=== PATIENT | male | born 1980 | race Caucasian/White ===

== ENCOUNTER 2019-01-09 21:03 | Inpatient (IN) ==
[2019-01-09] MEDS ORDERED: ASPIRIN CHEW 324 MG PO STA (21:21)
[2019-01-09] MEDS: NITROGLYCERIN SL 0.4 MG/TAB TAB SL PRN ×3 (21:24→21:35)
[2019-01-09 21:32] LABS: Basophils # (auto) 0.01 K/uL (0-0.2); Basophils % (auto) 0.1 %; Eosinophils # (auto) 0.02 K/uL (0-0.5); Eosinophils % (auto) 0.1 %; Hemoglobin 17.4 g/dL (14.0-18.0); Immature Granulocytes # (auto) 0.08 K/uL (0.00-0.02); Immature Granulocytes % (auto) 0.5 %; Lymphocytes # (auto) 1.26 K/uL (1.2-3.4); Lymphocytes % (auto) 7.2 %; Mean Corpuscular Hemoglobin 30.8 pg (25-34); Mean Corpuscular Hgb Conc 35.5 g/dL (32-36); Mean Corpuscular Volume 86.7 fL (80-100); Mean Platelet Volume 10.3 fL (7.4-10.4); Monocytes # (auto) 1.21 K/uL (0.11-0.59); Monocytes % (auto) 6.9 %; Neutrophils # (auto) 15.01 K/uL (1.4-6.5); Neutrophils % (auto) 85.2 %; Platelet Count 294 K/uL (130-400); RDW Coefficient of Variation 12.6 % (11.5-14.5); RDW Standard Deviation 39.9 fL (36.4-46.3); Red Blood Count 5.65 M/uL (4.7-6.1); White Blood Count 17.59 K/uL (4.8-10.8)
[2019-01-09] MEDS ORDERED: NiCARDipine HCL INJ 2.5 MG/ML 10 ML AMP ONE (21:34)
[2019-01-09] MEDS ORDERED: fentaNYL citrate 100 MCG/2 ML VIAL ONE (21:34)
[2019-01-09] MEDS ORDERED: MIDAZOLAM HCL 1 MG/ML 2ML VIAL ONE (21:34)
[2019-01-09] MEDS ORDERED: HEPARIN (PORCINE) 1000 UNIT/ML 10 ML (CATH LAB USE ONLY) ONE (21:34)
--- NOTE | 2019-01-09 21:34 | XRay Report ---
XR chest 1V portable CLINICAL HISTORY: Atypical chest pain COMPARISON STUDY: No previous studies for comparison. FINDINGS: The cardiac and mediastinal contours are normal. There is no evidence of focal pulmonary co nsolidation. There is no evidence of failure. No pleural effusions are visualized.[ IMPRESSION: No active disease in the chest. Electronically signed by: Floyd Napier M.D. 01/09/2019 9:32 PM
[2019-01-09] MEDS ORDERED: NITROGLYCERIN/D5W 100MCG/ML 20ML SYR ONE (21:35)
[2019-01-09 21:41] LABS: Alanine Aminotransferase 72 U/L (12-78); Albumin Level 4.5 gm/dl (3.4-5.0); Aspartate Aminotransferase 35 U/L (15-37); Blood Urea Nitrogen 25 mg/dl (7-18); Calcium 9.3 mg/dl (8.5-10.1); Carbon Dioxide 28 mmol/L (21-32); Chloride 101 mmol/L (98-107); Creatinine Clr Calc Pharmacy 78.3 ml/min; Est GFR (African American) 80.4; Est GFR (Non-African American) 69.4; Glucose 118 mg/dl (70-99); Lipase 301 U/L (73-393); Magnesium 2.1 mg/dl (1.8-2.4); Sodium 136 mmol/L (136-145)
[2019-01-09 21:46] LABS: INR 1.2 (0.9-1.1); Partial Thromboplastin Ratio 0.9; Partial Thromboplastin Time 23.4 Seconds (21.0-31.0); Prothrombin Time 12.1 Seconds (9.0-12.0)
--- NOTE | 2019-01-09 21:48 | Pre Anesthesia Assessment ---
Date of Service January 09, 2019 Pre Sedation Assessment Vital Signs Temp Pulse Resp BP Pulse Ox 01/09/19 21:45 83 13 119/66 94 01/09/19 21:41 76 23 94 01/09/19 21:40 82 25 H 136/75 93 01/09/19 21:36 72 21 96 01/09/19 21:35 92 H 19 126/82 92 01/09/19 21:33 95 01/09/19 21:32 95 01/09/19 21:31 92 H 20 96 01/09/19 21:30 95 H 20 141/96 H 97 01/09/19 21:27 78 28 H 154/107 H 01/09/19 21:25 88 22 01/09/19 21:24 77 26 H 151/105 H 01/09/19 21:20 95 H 14 01/09/19 21:17 82 14 98 01/09/19 21:15 77 17 150/112 H 98 01/09/19 21:06 36.5 C 76 16 164/97 H 98 Pre-Sedation Airway Assessment Smoking Status: Never smoker Notes The planned sedation has been discussed with the patient. Informed Consent was obtained. I have identified the patient, determined the appropriateness of sedation and have assessed the patient immediately prior to the procedure. [place]ampatti 3, ASA 1, normal right hand Allens test All medicine(s) and interventions are by my order.
[2019-01-09] MEDS ORDERED: ONDANSETRON INJ 2 MG/ML 2 ML VIAL ONE (21:54)
[2019-01-09 22:14] LABS: Albumin Globulin Ratio 1.2 (0.9-2); Alkaline Phosphatase 62 U/L (45-117); Bilirubin,Total 0.6 mg/dl (0.2-1); Creatine Kinase 111 U/L (39-308); Creatine Kinase MB 1.7 ng/ml (0.5-3.6); Globulin 3.8 gm/dl (2.5-4.0); Total Protein 8.3 gm/dl (6.4-8.2); Troponin I 0.132 ng/ml (0-0.045)
[2019-01-09] MEDS ORDERED: ONDANSETRON INJ 2 MG/ML 2 ML VIAL IV PRN (22:25)
[2019-01-09] MEDS ORDERED: ATROPINE SULFATE 0.1 MG/ML 10ML SYR IV PRN (22:25)
[2019-01-09] MEDS ORDERED: NITROGLYCERIN SL 0.4 MG/TAB TAB SL PRN (22:25)
[2019-01-09] MEDS ORDERED: CLOPIDOGREL BISULFATE 300 MG TAB ONE (22:29)
[2019-01-09 22:32] LABS: T4 Free Thyroxine 1.13 ng/dl (0.8-1.6)
[2019-01-09] MEDS ORDERED: ICU PROTOCOL FOR HYPERGLYCEMIA PRN (22:35)
[2019-01-09 22:56] LABS: Chol HDL Ratio 4; Cholesterol 182 mg/dl (0-200); HDL Cholesterol 49 mg/dl; LDL Cholesterol Direct 115 mg/dl; Triglycerides 83 mg/dl (0-150); VLDL Cholesterol 17 mg/dl
--- NOTE | 2019-01-09 22:56 | Cardiac Catheterization ---
Cardiac Cath Procedure Full Procedure Date January 09, 2019 Pre-Procedure Diagnosis Pre-Procedure Diagnosis: STEMI AUC Score AUC Score: 8 Post-Procedure Diagnosis Post-Procedure Diagnosis: Mild CAD Procedure(s) Performed Procedure(s) Performed: Coronary Angiography, Left Heart Cath and LV Angiography Magician/Illusionist Tim Betancur DO Estimated Blood Loss Estimated Blood Loss: None Summary of Findings Mid Cx 20% stenosis with staining Hemodynamics Rest Ao:: 112/6 Final Ao: 117/90 LV: EF 60-65% Recommendations Recommendations: Medical Therapy and/or Counseling Radiation Exposure (mGy) no PCI performed I attest to the content of the Intraoperative Record and any orders documented therein. Any exceptions are noted below. Patent coronary arteries without obstruction to flow, 10% mid Cx stenosis with staining, and mid inferior dyskinetic segment, suggests transient thrombotic occlusion C/W inferoposterolateral injury by EKG and Troponin. 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 Villalpando was resident physician during care of patient. I separately evaluated patient for mccarthy portions of the history and the exam. I was present during the critical portion of medical decision making, and I discussed the case with the resident. I generally agree with the findings and plan. Patient asymptomatic, chest pain-free at this time, echocardiogram reviewed and I have reviewed cardiology notes, stable for downgrade out of ICU.
--- NOTE | 2019-01-09 23:07 | History & Physical Report ---
Date of Service January 09, 2019 Assessment & Plan (1) STEMI (ST elevation myocardial infarction): Nonocclusive CAD on diagnostic cardiac cath Recent cholecystitis status post antibiotic Rx Outpatient elective cholecystectomy contemplated next month. Hyperglycemia rule out DM ICU monitoring post PCI Management of cardiac issues as per insulation estimator. Analgesia Check hemoglobin A1c Patient requested to inform his [place] [facility] surgeon of recent AL which might preclude elective surgery scheduled next month. DVT prophylaxis with Lovenox subcu Full code History of Present Illness Chief Complaint: + Primary Care Provider: Dr. Belcher History obtained from patient, family, and records. Medical history significant for recent bout of cholecystitis status post antibiotic Rx. Recent [facility] visit about 2 weeks ago for gallbladder attack. Patient prescribed antibiotic course. Elective cholecystectomy contemplated next month as per patient. Patient was out both hunting by himself this afternoon when he noted achy chest pain in the middle and left side of his chest accompanied by shortness of breath, diaphoresis, generalized weakness. No prior episodes in the past. No relief with ibuprofen intake. Patient drove himself home thinking symptoms with improved after showering. Patient brought to the ER by . EKG showed ST elevation on the inferior lateral leads. Chest pain improved with nitroglycerin. Heart alert called. Patient underwent emergent diagnostic cardiac catheterization. Patent coronary arteries without obstruction to flow, 10% mid circumflex stenosis. Mid inferior dyskinetic segment suggesting transient thrombotic occlusion consistent with inferior posterolateral injury as per cath note. PCI not indicated. Patient currently at the ICU. Complaining of minimal left-sided chest discomfort. 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 Allergies Allergy/AdvReac Type Severity Reaction Status Date / Time Penicillins Allergy Severe Hives Verified 01/09/19 21:32 Home Medications Home Medications Medication Instructions Recorded Confirmed Type ciprofloxacin HCl [Cipro] 500 mg PO BID 01/09/19 01/09/19 History ibuprofen 600 mg PO QID PRN 01/09/19 01/09/19 History metronidazole [Flagyl] 500 mg PO TID 01/09/19 01/09/19 History simvastatin 40 mg PO PM 01/09/19 01/09/19 History Past Med/Surg History Medical History No significant past medical history (Acute) Social History Preferred Language: Honduran Communication Ability: Effective Joist Setter Required: No Beliefs That Will Affect Care: None Current Living Situation: Spouse Other Information That Helps Us Care for You: No Feels Safe at Home: Yes Safety Concerns: Feels Safe At This Time Smoking Status: Never smoker Do You Dip or Chew Tobacco: No ; Hx Alcohol Use: No Hx Substance Use: No Review of Systems Review of Systems: As per HPI, all 10 systems reviewed, all other ROS negative Physical Exam Physical Exam: GENERAL: Comfortable, pleasant, no respiratory distress SKIN: Normal color, warm HEENT: Partial alopecia, pink palpebral conjunctivae, no ptosis, dry buccal mucosa NECK : Supple, no tenderness CHEST : CTA, no tenderness HEART : RRR, no obvious murmurs ABDOMEN: Some distention, nontender EXTREMITIES : No LE swelling/tenderness, no other conspicuous deformities noted NEUROLOGIC : Coherent, no facial asymmetry, no other gross focality Results & Data Vital Signs (Past 12 Hours) Vital Signs Temp Pulse Resp BP Pulse Ox 01/09/19 21:45 83 13 119/66 94 01/09/19 21:41 76 23 94 01/09/19 21:40 82 25 H 136/75 93 01/09/19 21:36 72 21 96 01/09/19 21:35 92 H 19 126/82 92 01/09/19 21:33 95 01/09/19 21:32 95 01/09/19 21:31 92 H 20 96 01/09/19 21:30 95 H 20 141/96 H 97 01/09/19 21:27 78 28 H 154/107 H 01/09/19 21:25 88 22 01/09/19 21:24 77 26 H 151/105 H 01/09/19 21:20 95 H 14 01/09/19 21:17 82 14 98 01/09/19 21:15 77 17 150/112 H 98 01/09/19 21:06 36.5 C 76 16 164/97 H 98 Laboratory Results Laboratory Results WBC 17.59 K/uL (4.8-10.8) H 01/09/19 21:17 RBC 5.65 M/uL (4.7-6.1) 01/09/19 21:17 Hgb 17.4 g/dL (14.0-18.0) 01/09/19 21:17 Hct 49.0 % (42-52) 01/09/19 21:17 MCV 86.7 fL (80-100) 01/09/19 21:17 MCH 30.8 pg (25-34) 01/09/19 21:17 MCHC 35.5 g/dL (32-36) 01/09/19 21:17 RDW Std Deviation 39.9 fL (36.4-46.3) 01/09/19 21:17 RDW Coeff of Matthieu 12.6 % (11.5-14.5) 01/09/19 21:17 Plt Count 294 K/uL (130-400) 01/09/19 21:17 MPV 10.3 fL (7.4-10.4) 01/09/19 21:17 Immature Gran % (Auto) 0.5 % 01/09/19 21:17 Neut % (Auto) 85.2 % 01/09/19 21:17 Lymph % (Auto) 7.2 % 01/09/19 21:17 Heard % (Auto) 6.9 % 01/09/19 21:17 Eos % (Auto) 0.1 % 01/09/19 21:17 Baso % (Auto) 0.1 % 01/09/19 21:17 Immature Gran # (Auto) 0.08 K/uL (0.00-0.02) H 01/09/19 21:17 Neut # (Auto) 15.01 K/uL (1.4-6.5) H 01/09/19 21:17 Lymph # (Auto) 1.26 K/uL (1.2-3.4) 01/09/19 21:17 Heard # (Auto) 1.21 K/uL (0.11-0.59) H 01/09/19 21:17 Eos # (Auto) 0.02 K/uL (0-0.5) 01/09/19 21:17 Baso # (Auto) 0.01 K/uL (0-0.2) 01/09/19 21:17 PT 12.1 Seconds (9.0-12.0) H 01/09/19 21:17 INR 1.2 (0.9-1.1) H 01/09/19 21:17 APTT 23.4 Seconds (21.0-31.0) 01/09/19 21:17 PTT Ratio 0.9 01/09/19 21:17 Sodium 136 mmol/L (136-145) 01/09/19 21:17 Potassium 4.0 mmol/L (3.5-5.1) 01/09/19 21:17 Chloride 101 mmol/L (98-107) 01/09/19 21:17 Carbon Dioxide 28 mmol/L (21-32) 01/09/19 21:17 Anion Gap 7.0 (3-11) 01/09/19 21:17 BUN 25 mg/dl (7-18) H 01/09/19 21:17 Creatinine 1.29 mg/dl (0.6-1.4) 01/09/19 21:17 Est Cr Clr Drug Dosing 78.3 ml/min 01/09/19 21:17 Est GFR ( Amer) 80.4 01/09/19 21:17 Est GFR (Non-Af Amer) 69.4 01/09/19 21:17 BUN/Creatinine Ratio 19.0 (10-20) 01/09/19 21:17 Glucose 118 mg/dl (70-99) H 01/09/19 21:17 Calcium 9.3 mg/dl (8.5-10.1) 01/09/19 21:17 Magnesium 2.1 mg/dl (1.8-2.4) 01/09/19 21:17 Total Bilirubin 0.6 mg/dl (0.2-1) 01/09/19 21:17 AST 35 U/L (15-37) 01/09/19 21:17 ALT 72 U/L (12-78) 01/09/19 21:17 Alkaline Phosphatase 62 U/L (45-117) 01/09/19 21:17 Total Creatine Kinase 111 U/L (39-308) 01/09/19 21:17 CK-MB (CK-2) 1.7 ng/ml (0.5-3.6) 01/09/19 21:17 CK/CKMB % Calc 1.5 (0-3.0) 01/09/19 21:17 POC Troponin I 0.12 ng/ml (0-0.045) H 01/09/19 21:21 Troponin I 0.132 ng/ml (0-0.045) H* 01/09/19 21:17 Total Protein 8.3 gm/dl (6.4-8.2) H 01/09/19 21:17 Albumin 4.5 gm/dl (3.4-5.0) 01/09/19 21:17 Globulin 3.8 gm/dl (2.5-4.0) 01/09/19 21:17 Albumin/Globulin Ratio 1.2 (0.9-2) 01/09/19 21:17 Triglycerides 83 mg/dl (0-150) 01/09/19 21:17 Cholesterol 182 mg/dl (0-200) 01/09/19 21:17 LDL Cholesterol Direct 115 mg/dl 01/09/19 21:17 LDL Cholesterol, Calc Not Reportable 01/09/19 21:17 VLDL Cholesterol, Calc 17 mg/dl 01/09/19 21:17 HDL Cholesterol 49 mg/dl 01/09/19 21:17 Cholesterol/HDL Ratio 4 01/09/19 21:17 Lipase 301 U/L (73-393) 01/09/19 21:17 TSH 7.240 uIu/ml (0.300-4.500) H 01/09/19 21:17 Free T4 1.13 ng/dl (0.8-1.6) 01/09/19 21:17 Diagnostic Findings Chest x-ray : No active disease EKG as per my interpretation : Rate 70, NSR, normal axis, ST and ablation inferior, lateral leads
[2019-01-09] MEDS ORDERED: TRAMADOL HCL 50 MG TABLET PO PRN (23:15)
[2019-01-09] MEDS ORDERED: ACETAMINOPHEN 325 MG TAB PO PRN (23:17)
--- NOTE | 2019-01-09 23:27 | Critical Care Consultation ---
Date of Consultation January 09, 2019 Assessment & Plan (1) STEMI (ST elevation myocardial infarction): (2) Cholecystitis: Reason Critically Ill: 38-year-old male found to have ST elevation in inferior lateral leads, heart cath suggestive of transient thrombotic occlusion without need for PCI. Neuro - [facility] ICU: Negative Cardiac - STEMIpatient presented with ST elevation in inferior lateral leads on EKG and elevated troponin 0.132 -Underwent cardiac cath with no indication for PCI placement, suggestive of transient thrombotic occlusion -ST elevation is subsided on post-cath EKG and chest pain is improved -Continue Lipitor, MTP, ASA, Plavix -Trend troponins -Follow-up echo -Continuous monitoring on telemetry -Monitor daily weights -Follow-up cardiac recs HLDcontinue statin Respiratory - Maintain sats on room air GI - Heart healthy diet Cholecystitisno current issue, patient scheduled for elective cholecystectomy on 02/05 -Patient reportedly had 1 day of antibiotic therapy you left, will continue, see below RENAL/LYTES - NS 100 mL/h Creatinine stable, maximize electrolytes, monitor routine BMPs - Strict I's and O's ENDO - No history of diabetes or thyroid disease Follow-up hemoglobin A1c ICU hyperglycemic protocol HEME - H&H within normal limits, monitor routine CBC ID - Patient currently on antibiotics for cholecystitis, will continue outpatient regimen as patient had 1 day left Will continue regimen of Flagyl 500 mg 3 times daily for next 48 hours for cholecystitis We will continue regimen of Cipro 500 mg twice daily for the next 48 hours for cholecystitis LINES/IV ACCESS - Peripheral IV DVT PROPHYLAXIS - Lovenox Thank you for allowing us to participate in the care of this patient. Please refer to my attending physician's documentation for any further recommendations. (3) Hyperlipemia: Supervising Physician Co-Signing Physician Notes Dr. Villalpando was resident physician during care of patient. I separately evaluated patient for mccarthy portions of the history and the exam. I was present during the critical portion of medical decision making, and I discussed the case with the resident. I generally agree with the findings and plan. Patient asymptomatic, chest pain-free at this time, echocardiogram reviewed and I have reviewed cardiology notes, stable for downgrade out of ICU. History of Present Illness Attending Physician: Gus Quezada MD History of Present Illness Mr. Murillo is a 38 [id number] with past medical history of HLD and recent cholecystitis (scheduled for cholecystectomy 02/05) who was bowhunting this afternoon when he began to experience chest pain with associated shortness of breath and diaphoresis. He drove home and was brought to the emergency department by his where EKG showed ST elevations in the inferior lateral leads and he had a mildly elevated troponin. Patient was given nitro and showed some improvement in chest pain. Heart alert was initiated and was taken to [facility]. Heart cath revealed no obstructive flow to the coronary arteries, 10% mid circumflex stenosis. Patient had mid inferior dyskinetic segment which suggested transient thrombotic occlusion consistent with inferior posterior lateral injury. No PCI was indicated. On arrival to the ICU the patient does complain of a mild apical chest discomfort 2 out of 10. He denies dizziness, syncope, shortness of breath, palpitations, radiation of chest pain to arm or neck, nausea or vomiting. He does complain of mild tenderness to the right upper quadrant which he claims is related to recent bout of cholecystitis which she is scheduled for cholecystectomy at the beginning of next month. Patient is currently hem odynamically stable remain in ICU overnight for close monitoring. Allergies Allergy/AdvReac Type Severity Reaction Status Date / Time Penicillins Allergy Severe Hives Verified 01/09/19 21:32 Home Medications Home Medications Medication Instructions Recorded Confirmed Type ciprofloxacin HCl [Cipro] 500 mg PO BID 01/09/19 01/09/19 History ibuprofen 600 mg PO QID PRN 01/09/19 01/09/19 History metronidazole [Flagyl] 500 mg PO TID 01/09/19 01/09/19 History simvastatin 40 mg PO PM 01/09/19 01/09/19 History Patient History Medical History No significant past medical history (Acute) Social History Preferred Language: Greek Communication Ability: Effective Air Carrier Inspector Required: No Beliefs That Will Affect Care: None Current Living Situation: Spouse Other Information That Helps Us Care for You: No Feels Safe at Home: Yes Safety Concerns: Feels Safe At This Time Smoking Status: Never smoker Do You Dip or Chew Tobacco: No ; Hx Alcohol Use: No Hx Substance Use: No Review of Systems Review of Systems: All systems reviewed & are unremarkable except as noted in HPI & below Physical Exam Eyes: PERRL, conjunctivae normal, anicteric sclerae ENMT: external ear and nose normal, oropharynx normal Neck: trachea midline, no thyromegaly Respiratory: normal respiratory effort, lungs clear to auscultation Cardiovascular: RRR, no murmur, no edema Heart Sounds: normal S1 and normal S2 Vessels: no JVD Extremities: normal capillary refill; no edema Gastrointestinal (Abdomen): Inspection/Auscultation: normal bowel sounds; abdomen not distended Percussion/Palpation: abdomen soft Tenderness over right upper quadrant Skin: no rashes, warm and dry Neurologic: PERRL, EOMI, accommodation nl, no face palsy, no dysarthria Psychiatric: A+Ox3, euthymic affect Results & Data Vital Signs (Past 12 Hours) Vital Signs Temp Pulse Resp BP Pulse Ox 01/09/19 23:15 72 20 120/75 95 01/09/19 23:00 36.7 C 62 20 112/68 94 01/09/19 21:45 83 13 119/66 94 01/09/19 21:41 76 23 94 01/09/19 21:40 82 25 H 136/75 93 01/09/19 21:36 72 21 96 01/09/19 21:35 92 H 19 126/82 92 01/09/19 21:33 95 01/09/19 21:32 95 01/09/19 21:31 92 H 20 96 01/09/19 21:30 95 H 20 141/96 H 97 01/09/19 21:27 78 28 H 154/107 H 01/09/19 21:25 88 22 01/09/19 21:24 77 26 H 151/105 H 01/09/19 21:20 95 H 14 01/09/19 21:17 82 14 98 01/09/19 21:15 77 17 150/112 H 98 01/09/19 21:06 36.5 C 76 16 164/97 H 98 Coding Level of Care Code 82048 Inpt Consult Level 4 Diagnoses STEMI (ST elevation myocardial infarction) I21.3 Cholecystitis K81.9 Hyperlipemia E78.5
[2019-01-09] MEDS: SODIUM CHLORIDE 0.9% 1000ML 1,000 ML IV SCH (23:30)
[2019-01-09] MEDS ORDERED: TRAMADOL HCL 50 MG TABLET PO STA (23:57)
[2019-01-09] MEDS ORDERED: MoRPHine SULFATE 4 MG/ML 1 ML CARP\\VIAL IV PRN (23:58)
[2019-01-09] MEDS ORDERED: PROMETHAZINE HCL 12.5 MG in SODIUM CHLORIDE 0.9% 50 ML IV PRN (23:58)
[2019-01-10] MEDS: METOPROLOL TARTRATE 25 MG TAB PO SCH ×3 (00:06→20:10)
[2019-01-10] MEDS: metroNIDAZOLE 500 MG/100 ML BAG IV SCH ×3 (02:00→17:15)
[2019-01-10] MEDS ORDERED: CIPROFLOXACIN 500 MG TAB PO SCH (02:00)
--- NOTE | 2019-01-10 02:01 | Emergency Department Note ---
Entered by Rachael Elias acting as a scribe for Vanessa Pettit DO History of Present Illness General Chief complaint: Chest Pain Stated complaint: CHEST PAIN Time Seen by Provider: 01/09/19 21:10 Source: patient History of Present Illness Provider complaint: chest pain Onset (ago): hour(s) 2 Location: chest Radiation: non-radiation Maximum Pain Intensity: 7 Current Pain Intensity: 6 Quality: + stabbing, + sharp and + dull Associated symptoms: + nausea/vomiting (+nausea, -vomiting), + shortness of breath and + other (+jaw pain) Treatments prior to arrival: other (+Ibuprofen) The patient is a 38 year old male who presents to the Emergency Room with complaints of chest pain that started at 1845 today. He notes that it started while he was walking. He notes that he had been carrying heavy materials prior to the episode and he was exhausted. He states that the pain feels like dull, sharp, stabbing pain. The patient notes that the pain is located in the center of the chest and is non-radiating. He reports that it is a 6/10 pain. He notes that he has jaw pain. He mentions that he is nauseous and has mild shortness of breath. He reports that he took 3 doses of Ibuprofen prior to arrival. He denies any past medical problems. The patient mentions that his father had cardiac issues at 45 years old. Home Medications Home Medications Medication Instructions Recorded Confirmed Type ciprofloxacin HCl [Cipro] 500 mg PO BID 01/09/19 01/09/19 History ibuprofen 600 mg PO QID PRN 01/09/19 01/09/19 History metronidazole [Flagyl] 500 mg PO TID 01/09/19 01/09/19 History simvastatin 40 mg PO PM 01/09/19 01/09/19 History Allergies Allergy/AdvReac Type Severity Reaction Status Date / Time Penicillins Allergy Severe Hives Verified 01/09/19 21:32 Past Med/Surg History Medical History No significant past medical history (Acute) Social History Preferred Language: [place] Communication Ability: Effective V Belt Skiver Required: No Beliefs That Will Affect Care: None marital status: Current Living Situation: Spouse Other Information That Helps Us Care for You: No Feels Safe at Home: Yes Safety Concerns: Feels Safe At This Time Smoking Status: Never smoker Do You Dip or Chew Tobacco: No ; Hx Alcohol Use: No Hx Substance Use: No Review of Systems See HPI for pertinent positives & negatives. and A total of 10 systems reviewed and were otherwise negative Physical Exam Vital Signs Vital Signs - 24 hr 01/09/19 21:06 01/09/19 21:15 01/09/19 21:17 Temperature 36.5 C Temperature Source Oral Sepsis Recent Fever Within 48 Hours No Sepsis Action Taken by Nursing No Action Required Pulse Rate 76 77 82 Pulse Rate from SpO2 Sensor 76 83 Respiratory Rate 16 17 14 Respiratory Effort / Characteristics Non-Labored Spontaneous Respiratory Depth Normal Respiratory Pattern Regular Blood Pressure 164/97 H 150/112 H Blood Pressure Mean 119 124 Blood Pressure Position Sitting Pulse Oximetry 98 98 98 Oxygen Delivery Method Room Air 01/09/19 21:20 01/09/19 21:24 01/09/19 21:25 Temperature Temperature Source Sepsis Recent Fever Within 48 Hours Sepsis Action Taken by Nursing Pulse Rate 95 H 77 88 Pulse Rate from SpO2 Sensor Respiratory Rate 14 26 H 22 Respiratory Effort / Characteristics Respiratory Depth Respiratory Pattern Blood Pressure 151/105 H Blood Pressure Mean 120 Blood Pressure Position Pulse Oximetry Oxygen Delivery Method 01/09/19 21:27 01/09/19 21:30 01/09/19 21:31 Temperature Temperature Source Sepsis Recent Fever Within 48 Hours Sepsis Action Taken by Nursing Pulse Rate 78 95 H 92 H Pulse Rate from SpO2 Sensor 84 90 Respiratory Rate 28 H 20 20 Respiratory Effort / Characteristics Respiratory Depth Respiratory Pattern Blood Pressure 154/107 H 141/96 H Blood Pressure Mean 122 111 Blood Pressure Position Pulse Oximetry 97 96 Oxygen Delivery Method 01/09/19 21:32 01/09/19 21:33 01/09/19 21:35 Temperature Temperature Source Sepsis Recent Fever Within 48 Hours Sepsis Action Taken by Nursing Pulse Rate 92 H Pulse Rate from SpO2 Sensor 77 Respiratory Rate 19 Respiratory Effort / Characteristics Respiratory Depth Respiratory Pattern Blood Pressure 126/82 Blood Pressure Mean 96 Blood Pressure Position Pulse Oximetry 95 95 92 Oxygen Delivery Method Room Air Room Air 01/09/19 21:36 01/09/19 21:40 01/09/19 21:41 Temperature Temperature Source Sepsis Recent Fever Within 48 Hours Sepsis Action Taken by Nursing Pulse Rate 72 82 76 Pulse Rate from SpO2 Sensor 71 92 H 80 Respiratory Rate 21 25 H 23 Respiratory Effort / Characteristics Respiratory Depth Respiratory Pattern Blood Pressure 136/75 Blood Pressure Mean 95 Blood Pressure Position Pulse Oximetry 96 93 94 Oxygen Delivery Method 01/09/19 21:45 01/09/19 23:00 Temperature 36.7 C Temperature Source Sepsis Recent Fever Within 48 Hours Sepsis Action Taken by Nursing Pulse Rate 83 62 Pulse Rate from SpO2 Sensor 82 61 Respiratory Rate 13 20 Respiratory Effort / Characteristics Respiratory Depth Respiratory Pattern Blood Pressure 119/66 112/68 Blood Pressure Mean 83 82 Blood Pressure Position Pulse Oximetry 94 94 Oxygen Delivery Method General: Non-ill appearing young male in no acute distress. HEENT: Normal cephalic atraumatic. Pupils are equal round and reactive to light. Extraocular movements are intact. Oropharynx is pink with moist mucous membranes. No swelling of the mouth lips or tongue. Neck: Supple with a midline trachea. No meningeal signs or stiffness, no JVD or bruits. No Stridor. Chest: Clear to auscultation bilaterally. No wheezes or rhonchi. No increased work of breathing. Heart: regular rate and rhythm. Abdomen: Soft nontender, nondistended without rebound guarding or rigidity. Extremities: No cyanosis clubbing or edema. No calf tenderness or asymmetry Spine/Back. Non tender to palpation. No CVA tenderness Skin: Good turgor without rashes. Neurologic exam: Cranial nerves two through 12 are intact. Motor and sensation are intact and symmetrical throughout. Course 2113: The patient was evaluated in room A9B, and a complete history and physical examination were performed. 2144: The patient will be further evaluated by Dr. Vargas- [facility] Cardiology in the research lab assistant. Administered Medications Aspirin (Ecotrin Ectab) 81 mg PO QAM [facility] Stop: 02/09/19 08:59 Last Admin: 01/10/19 07:45 Dose: 81 mg Documented by: [id number] Clopidogrel Bisulfate (Plavix) 75 mg PO QAM [facility] Stop: 02/09/19 08:59 Last Admin: 01/10/19 07:46 Dose: 75 mg Documented by: [id number] Colchicine (Colcrys) 0.3 mg PO BID [facility] Stop: 01/11/19 21:01 Last Admin: 01/10/19 09:26 Dose: 0.3 mg Documented by: [id number] Enoxaparin Sodium (Lovenox) 40 mg SQ QAM [facility] Stop: 02/09/19 08:59 Last Admin: 01/10/19 07:46 Dose: 40 mg Documented by: [id number] Famotidine (Pepcid) 20 mg PO QAM [facility] Stop: 02/09/19 08:59 Last Admin: 01/10/19 09:26 Dose: 20 mg Documented by: [id number] Metronidazole (Flagyl) 500 mg in 100 mls @ 100 mls/hr IV Q8H [facility] Stop: 01/12/19 01:59 Last Admin: 01/10/19 17:15 Dose: 100 mls/hr Documented by: [id number] Infusion: 01/10/19 10:35 Dose: 0 mls/hr Documented by: [id number] Admin: 01/10/19 09:26 Dose: 100 mls/hr Documented by: [id number] Infusion: 01/10/19 02:57 Dose: 0 mls/hr Documented by: [id number] Admin: 01/10/19 02:00 Dose: 100 mls/hr Documented by: [id number] Metoprolol Tartrate (Lopressor) 25 mg PO BID [facility] Stop: 02/08/19 22:29 Last Admin: 01/10/19 07:47 Dose: 25 mg Documented by: [id number] Admin: 01/10/19 00:06 Dose: 25 mg Documented by: [id number] Discontinued Medications Aspirin (Aspirin) 324 mg PO NOW [facility] Stop: 01/09/19 21:22 Last Admin: 01/09/19 21:24 Dose: 324 mg Documented by: [id number] Atorvastatin Calcium [facility]) [facility] Stop: 02/09/19 08:59 Last Admin: 01/10/19 07:46 Dose: 40 mg Documented by: [id number] Ciprofloxacin (Cipro) 500 mg PO Q12 [facility] Stop: 01/12/19 01:59 Last Admin: 01/10/19 01:55 Dose: 500 mg Documented by: [id number] Clopidogrel Bisulfate (Plavix) Confirm Administered Dose 600 mg .ROUTE .STK-MED ONE Stop: 01/09/19 22:30 Last Admin: 01/09/19 23:37 Dose: Not Given Documented by: [id number] Fentanyl Citrate (Fentanyl Citrate) Confirm Administered Dose 100 mcg .ROUTE .STK-MED ONE Stop: 01/09/19 21:35 Last Admin: 01/09/19 22:23 Dose: 25 mcg Documented by: [id number] Heparin Sodium (Porcine) (Heparin Iv Bolus (Guest Room Attendant Use Only)) Confirm Administered Dose 10,000 units .ROUTE .STK-MED ONE Stop: 01/09/19 21:35 Last Admin: 01/09/19 22:24 Dose: 5,000 units Documented by: [id number] Heparin Sodium/Sodium Chloride (Heparin/Nss 1000 Unit/500ml Flush Bag) Confirm Administered Dose 3,000 units IV .STK-MED ONE Stop: 01/09/19 21:35 Last Admin: 01/09/19 22:24 Dose: 3,000 units Documented by: [id number] Sodium Chloride (Nss 1000ml) 1,000 mls @ 100 mls/hr IV .Q10H [facility] Stop: 02/08/19 21:59 Last Infusion: 01/10/19 16:41 Dose: 0 mls/hr Documented by: [id number] Admin: 01/10/19 05:00 Dose: 100 mls/hr Documented by: [id number] Infusion: 01/10/19 05:00 Dose: 100 mls/hr Documented by: [id number] Admin: 01/09/19 23:30 Dose: 100 mls/hr Documented by: [id number] Ibuprofen (Motrin) 800 mg PO TID [facility] Stop: 02/09/19 08:59 Last Admin: 01/10/19 09:25 Dose: 800 mg Documented by: [id number] Midazolam HCl (Versed) Confirm Administered Dose 2 mg .ROUTE .STK-MED ONE Stop: 01/09/19 21:35 Last Admin: 01/09/19 22:24 Dose: 1 mg Documented by: [id number] Nicardipine HCl (Cardene) Confirm Administered Dose 25 mg .ROUTE .STK-MED ONE Stop: 01/09/19 21:35 Last Admin: 01/09/19 22:23 Dose: 25 mg Documented by: [id number] Nitroglycerin (Nitrostat) 0.4 mg SL Q5M PRN PRN Reason: Chest Pain Last Admin: 01/09/19 21:35 Dose: 0.4 mg Documented by: [id number] Admin: 01/09/19 21:31 Dose: 0.4 mg Documented by: [id number] Admin: 01/09/19 21:24 Dose: 0.4 mg Documented by: [id number] Nitroglycerin/Dextrose (Nitroglycerin/D5w 100 Mcg/Ml 20ml Syringe) Confirm Administered Dose 2,000 mcg .ROUTE .STK-MED ONE Stop: 01/09/19 21:36 Last Admin: 01/09/19 22:24 Dose: 2,000 mcg Documented by: [id number] Ondansetron HCl (Zofran) Confirm Administered Dose 4 mg .ROUTE .STK-MED ONE Stop: 01/09/19 21:55 Last Admin: 01/09/19 22:24 Dose: 4 mg Documented by: [id number] Potassium Chloride (Klor-Con M20) 40 meq PO NOW [facility] Stop: 01/10/19 05:52 Last Admin: 01/10/19 06:19 Dose: 40 meq Documented by: [id number] Tramadol HCl (Ultram) 25 mg PO NOW [facility] Stop: 01/09/19 23:58 Last Admin: 01/10/19 00:07 Dose: Not Given Documented by: [id number] Medical Decision Making Differential Diagnosis Differential diagnoses include but are not limited to acute NM, pericarditis, GERD, aortic dissection, CHF, electrolyte abnormality, metabolic abnormality. Medical Records Attestation: I reviewed the patient's medical records. Home Medications Current Medication List: was personally reviewed by me Laboratory Data Attestation: I reviewed the patient's lab results. Result diagrams: 01/10/19 04:28 01/10/19 04:28 Lab Results 01/09/19 01/09/19 01/09/19 Range/Units 21:17 21:17 21:17 WBC 17.59 H (4.8-10.8) K/uL RBC 5.65 (4.7-6.1) M/uL Hgb 17.4 (14.0-18.0) g/dL Hct 49.0 (42-52) % MCV 86.7 (80-100) fL MCH 30.8 (25-34) pg MCHC 35.5 (32-36) g/dL RDW Std Deviation 39.9 (36.4-46.3) fL RDW Coeff of Matthieu 12.6 (11.5-14.5) % Plt Count 294 (130-400) K/uL MPV 10.3 (7.4-10.4) fL Immature Gran % (Auto) 0.5 % Neut % (Auto) 85.2 % Lymph % (Auto) 7.2 % [place] % (Auto) 6.9 % Eos % (Auto) 0.1 % Baso % (Auto) 0.1 % Immature Gran # (Auto) 0.08 H (0.00-0.02) K/uL Neut # (Auto) 15.01 H (1.4-6.5) K/uL Lymph # (Auto) 1.26 (1.2-3.4) K/uL [place] # (Auto) 1.21 H (0.11-0.59) K/uL Eos # (Auto) 0.02 (0-0.5) K/uL Baso # (Auto) 0.01 (0-0.2) K/uL PT 12.1 H (9.0-12.0) Seconds INR 1.2 H (0.9-1.1) APTT 23.4 (21.0-31.0) Seconds PTT Ratio 0.9 Sodium 136 (136-145) mmol/L Potassium 4.0 (3.5-5.1) mmol/L Chloride 101 (98-107) mmol/L Carbon Dioxide 28 (21-32) mmol/L Anion Gap 7.0 (3-11) BUN 25 H (7-18) mg/dl Creatinine 1.29 (0.6-1.4) mg/dl Est Cr Clr Drug Dosing 78.3 ml/min Est GFR ( Amer) 80.4 Est GFR (Non-Af Amer) 69.4 BUN/Creatinine Ratio 19.0 (10-20) Glucose 118 H (70-99) mg/dl Calcium 9.3 (8.5-10.1) mg/dl Magnesium 2.1 (1.8-2.4) mg/dl Total Bilirubin 0.6 (0.2-1) mg/dl AST 35 (15-37) U/L ALT 72 (12-78) U/L Alkaline Phosphatase 62 (45-117) U/L Total Creatine Kinase 111 (39-308) U/L CK-MB (CK-2) 1.7 (0.5-3.6) ng/ml CK/CKMB % Calc 1.5 (0-3.0) POC Troponin I (0-0.045) ng/ml Troponin I 0.132 H* (0-0.045) ng/ml Total Protein 8.3 H (6.4-8.2) gm/dl Albumin 4.5 (3.4-5.0) gm/dl Globulin 3.8 (2.5-4.0) gm/dl Albumin/Globulin Ratio 1.2 (0.9-2) Triglycerides 83 (0-150) mg/dl Cholesterol 182 (0-200) mg/dl LDL Cholesterol Direct 115 mg/dl LDL Cholesterol, Calc Not Reportable VLDL Cholesterol, Calc 17 mg/dl HDL Cholesterol 49 mg/dl Cholesterol/HDL Ratio 4 Lipase 301 (73-393) U/L TSH 7.240 H (0.300-4.500) uIu/ml Free T4 1.13 (0.8-1.6) ng/dl 01/09/19 Range/Units 21:21 WBC (4.8-10.8) K/uL RBC (4.7-6.1) M/uL Hgb (14.0-18.0) g/dL Hct (42-52) % MCV (80-100) fL MCH (25-34) pg MCHC (32-36) g/dL RDW Std Deviation (36.4-46.3) fL RDW Coeff of Matthieu (11.5-14.5) % Plt Count (130-400) K/uL MPV (7.4-10.4) fL Immature Gran % (Auto) % Neut % (Auto) % Lymph % (Auto) % [place] % (Auto) % Eos % (Auto) % Baso % (Auto) % Immature Gran # (Auto) (0.00-0.02) K/uL Neut # (Auto) (1.4-6.5) K/uL Lymph # (Auto) (1.2-3.4) K/uL [place] # (Auto) (0.11-0.59) K/uL Eos # (Auto) (0-0.5) K/uL Baso # (Auto) (0-0.2) K/uL PT (9.0-12.0) Seconds INR (0.9-1.1) APTT (21.0-31.0) Seconds PTT Ratio Sodium (136-145) mmol/L Potassium (3.5-5.1) mmol/L Chloride (98-107) mmol/L Carbon Dioxide (21-32) mmol/L Anion Gap (3-11) BUN (7-18) mg/dl Creatinine (0.6-1.4) mg/dl Est Cr Clr Drug Dosing ml/min Est GFR ( Amer) Est GFR (Non-Af Amer) BUN/Creatinine Ratio (10-20) Glucose (70-99) mg/dl Calcium (8.5-10.1) mg/dl Magnesium (1.8-2.4) mg/dl Total Bilirubin (0.2-1) mg/dl AST (15-37) U/L ALT (12-78) U/L Alkaline Phosphatase (45-117) U/L Total Creatine Kinase (39-308) U/L CK-MB (CK-2) (0.5-3.6) ng/ml CK/CKMB % Calc (0-3.0) POC Troponin I 0.12 H (0-0.045) ng/ml Troponin I (0-0.045) ng/ml Total Protein (6.4-8.2) gm/dl Albumin (3.4-5.0) gm/dl Globulin (2.5-4.0) gm/dl Albumin/Globulin Ratio (0.9-2) Triglycerides (0-150) mg/dl Cholesterol (0-200) mg/dl LDL Cholesterol Direct mg/dl LDL Cholesterol, Calc VLDL Cholesterol, Calc mg/dl HDL Cholesterol mg/dl Cholesterol/HDL Ratio Lipase (73-393) U/L TSH (0.300-4.500) uIu/ml Free T4 (0.8-1.6) ng/dl Imaging Data Radiologist's Impression: Radiology results as stated below per my review and the radiologist's interpretation: XR chest 1V portable CLINICAL HISTORY: Atypical chest pain COMPARISON STUDY: No previous studies for comparison. FINDINGS: The cardiac and mediastinal contours are normal. There is no evidence of focal pulmonary consolidation. There is no evidence of failure. No pleural effusions are visualized.[ IMPRESSION: No active disease in the chest. Electronically signed by: Floyd Napier M.D. 01/09/2019 9:32 PM ECG Data Attestation: I personally reviewed and interpreted this ECG as follows: Indication: + chest pain Rate (beats per minute): 71 Rhythm: + normal sinus ECG ST segments: + ST depression (v1, v2, avL) ECG Findings: + Other (acute STEMI inferior and laterally consistent with acute NM) Additional Comments: EKG 2: Normal sinus rhythm, 87 bpm, ST segment has slightly decreased compared to EKG1, otherwise there is no change. Blood Pressure Blood Pressure Findings: Low blood pressure Blood Pressure Disposition: further management by hospitalist MDM Narrative This patient was originally signed up for by Dr. pettit. I actually saw the patient and she did not as the nurse came and got me with the EKG is a concern for acute NM and I immediately went into the room. The patient was having symptoms consistent with acute NM. EKG showed ST segment elevation with some posterior changes and reciprocal changes. I called the heart alert. We established 2 large-bore IVs. The patient was given aspirin. He was given 3 nitroglycerin and this caused the pain to go down significantly a second EKG actually looks slightly better than the first and certainly does not look worse. Chest x-ray does not show any congestive heart failure, pneumonia, or pneumothorax. He has no acute electrode or metabolic abnormalities. His troponin is mildly elevated. The cardiac cath team and certified social workers in health care did arrive promptly and are going to take him to the Guest Room Attendant for further treatment evaluation and intervention. I explained this to both the patient is who is at the bedside as well as the patient's sister they are all in agreement with the plan. Impression & Plan Acute myocardial infarction, STEMI (ST elevation myocardial infarction), Chest pain, Hyperlipemia Critical Care Time Critical Care Time: Yes Total Critical Care Time: 30 I have personally spent greater than 30 minutes of critical care time in the direct management of this patient. This includes bedside care, interpretation of diagnostic studies, and testing, discussion with consultants, patient, and family members, and other required patient management activities. This 30 minutes is in excess of all separately billable procedures. Discharge Plan Visit Data *Final* Discharge Date/Time: 01/09/19 21:47 Chief Complaint: Chest Pain Stated Complaint: CHEST PAIN ED Provider: Nelson Palmer Discharge Problem: Acute myocardial infarction, STEMI (ST elevation myocardial infarction), Chest pain, Hyperlipemia Patient Disposition: Admitted As Inpatient Discharge Instructions Interventions: ED Discharge Assessment Last Done: 01/09/19 21:47 Discharge Problem: Acute myocardial infarction Qualifiers: Myocardial infarction type: ST elevation myocardial infarction Involved coronary artery: unspecified coronary artery Qualified Code(s): I21.3 - ST marisela vation (STEMI) myocardial infarction of unspecified site The scribe's documentation has been prepared under my direction and personally reviewed by me in its entirety. I confirm that the note above accurately reflects all work, treatment, procedures, and medical decision making performed by me.
[2019-01-10 04:52] LABS: Basophils # (auto) 0.01 K/uL (0-0.2); Basophils % (auto) 0.1 %; Eosinophils # (auto) 0.06 K/uL (0-0.5); Eosinophils % (auto) 0.5 %; Hematocrit (blood only) 43.1 % (42-52); Hemoglobin 15.4 g/dL (14.0-18.0); Immature Granulocytes # (auto) 0.04 K/uL (0.00-0.02); Immature Granulocytes % (auto) 0.3 %; Lymphocytes # (auto) 2.35 K/uL (1.2-3.4); Lymphocytes % (auto) 19.6 %; Mean Corpuscular Hgb Conc 35.7 g/dL (32-36); Mean Corpuscular Volume 86.7 fL (80-100); Mean Platelet Volume 9.8 fL (7.4-10.4); Monocytes # (auto) 1.21 K/uL (0.11-0.59); Monocytes % (auto) 10.1 %; Neutrophils # (auto) 8.29 K/uL (1.4-6.5); Neutrophils % (auto) 69.4 %; Platelet Count 270 K/uL (130-400); RDW Coefficient of Variation 12.6 % (11.5-14.5); RDW Standard Deviation 39.8 fL (36.4-46.3); Red Blood Count 4.97 M/uL (4.7-6.1); White Blood Count 11.96 K/uL (4.8-10.8)
[2019-01-10] MEDS: SODIUM CHLORIDE 0.9% 1000ML 1,000 ML IV SCH (05:00)
[2019-01-10 05:22] LABS: Calcium 8.8 mg/dl (8.5-10.1); Creatinine Clr Calc Pharmacy 108.9 ml/min; Est GFR (African American) 119.4; Magnesium 2.2 mg/dl (1.8-2.4); Potassium 3.7 mmol/L (3.5-5.1)
--- NOTE | 2019-01-10 05:31 | Operative Report ---
DATE OF OPERATION: 01/09/2019 INDICATIONS: Chest pain, typical of angina, transient hyperacute ST elevation in the inferoposterior lateral leads, positive troponin, 2-1/2 hours onset of symptoms in a 38-year-old male with a history of medically treated hypercholesterolemia, family history of premature coronary artery disease with no congestive heart failure on admission. PROCEDURES PERFORMED: Left heart catheterization, coronary cineangiography, left ventriculography, radiological interpretation and supervision. METHOD: Upon arrival in the dock or pier laborer, the patient was prepped and draped in the usual sterile fashion. After local infiltration of 2% lidocaine, a 6-[place] sheath was placed in the right radial artery. Intra-arterial nicardipine and nitroglycerin were administered. Intravenous heparin was administered and titrated to an ACT on the 200s seconds. Sheath was aspirated and flushed. A 6-[place] EBU 3.5 guiding catheter was advanced over wire under fluoroscopic guidance to the central circulation where it was aspirated and flushed and after confirmation of adequate waveform, it was advanced into the left main. Cineangiograms of the left coronary obtained and reviewed. Catheter removed from the body where the sheath was aspirated and flushed. A 6-[place] JL 3.5 guiding catheter was advanced over wire under fluoroscopic guidance to the central circulation where it was aspirated and flushed. After confirmation of adequate waveform, it was advanced into the right coronary artery. Cineangiograms of the right coronary artery obtained and reviewed. Catheter removed from body over wire and the sheath was aspirated and flushed. A 5-[place] pigtail was used to cross the aortic valve in retrograde fashion. Left ventricular end diastolic pressure was measured. Left ventriculography was performed using 36 mL of contrast dye over 3 seconds less than 450 PSI. The catheter removed from the left ventricle to the aorta and continuous pressure monitoring removed from the body over wire. The sheath was aspirated and flushed. An external compression device was deployed over the right radial artery. The patient returned to his room in good condition. COMPLICATIONS: None. FINDINGS: Left main is normal. Left anterior descending artery, first and second diagonal branch are free of significant disease. Left circumflex, circumflex marginal and posterolateral branches are free of significant obstructive disease. A small area of staining with a 10-20% stenosis of a large vessel was noted after a second marginal branch in the mid circumflex. No thrombotic occlusion is noted of any of the distal branches. The right coronary artery, the posterior descending artery, the posterior AV extension of the right coronary and a limited number of posterolateral branches were all free of significant disease. Left ventricular end diastolic pressure is normal. No significant aortic valve gradient is demonstrated. Left ventriculography demonstrates normal left ventricular size and function, ejection fraction estimated at 65% with a small mid inferior zone of dyskinesis noted. IMPRESSION: 1. Transient thrombotic occlusion of the circumflex, resolved. 2. Normal LV systolic function. Recommendations for aspirin and Plavix, beta christ as tolerated, CALEB inhibitors may be necessary, aggressive management of hypercholesterolemia to an LDL less than 70. I attest to the content of the Intraoperative Record and any orders documented therein. Any exception s are noted below.
[2019-01-10 05:36] LABS: Phosphorus 3.3 mg/dl (2.5-4.9); Troponin I 7.44 ng/ml (0-0.045)
--- NOTE | 2019-01-10 05:46 | Critical Care Progress Note ---
Date of Service January 10, 2019 Assessment & Plan (1) STEMI (ST elevation myocardial infarction): (2) Cholecystitis: Reason Critically Ill: 38-year-old male found to have ST elevation in inferior lateral leads, heart cath suggestive of transient thrombotic occlusion without need for PCI. Neuro - [facility] ICU: Negative Cardiac - STEMIpatient presented with ST elevation in inferior lateral leads on EKG and elevated troponin 0.132 -Underwent cardiac cath with no indication for PCI placement, suggestive of transient thrombotic occlusion -ST elevation is subsided on post-cath EKG and chest pain is improved -Continue Lipitor, MTP, ASA, Plavix -Trend troponins 1st=0.132 --> 2nd=7.44 -Follow-up echo -Continuous monitoring on telemetry -Monitor daily weights -Follow-up cardiac recs HLDcontinue statin Did a a couple beat short run of Vtach overnight Respiratory - Maintain sats on room air GI - Heart healthy diet Cholecystitisno current issue, patient scheduled for elective cholecystectomy on 02/05 -Patient reportedly had 1 day of antibiotic therapy you left, will continue, see below RENAL/LYTES - NS 100 mL/h Creatinine stable, maximize electrolytes, monitor routine BMPs - Strict I's and O's ENDO - No history of diabetes or thyroid disease Follow-up hemoglobin A1c - pending ICU hyperglycemic protocol HEME - H&H within normal limits, monitor routine CBC ID - Patient currently on antibiotics for cholecystitis, will continue outpatient regimen as patient had 1 day left Will continue regimen of Flagyl 500 mg 3 times daily for next 48 hours for cholecystitis We will continue regimen of Cipro 500 mg twice daily for the next 48 hours for cholecystitis LINES/IV ACCESS - Peripheral IV DVT PROPHYLAXIS - Lovenox (3) Hyperlipemia: Subjective Patient was seen and evaluated. He is resting in bed with comfort. No difficulty breathing, no worsening chest pain, nausea, vomiting, dzziness. Physical Exam Constitutional: WD/WN, vitals as above Eyes: PERRL, conjunctivae normal, anicteric sclerae ENMT: external ear and nose normal, oropharynx normal Neck: normal visual inspection and trachea midline Respiratory: normal respiratory effort, lungs clear to auscultation Cardiovascular: Rate/Rhythm: regular rate Heart Sounds: no murmur Gastrointestinal (Abdomen): Percussion/Palpation: abdomen soft; abdomen nontender Musculoskeletal: no cyanosis or clubbing, extremities motor strength 5/5 Skin: no rashes, warm and dry Neurologic: moves all extremities and awake Psychiatric: A+Ox3, euthymic affect Results & Data Vital Signs (Past 12 Hours) Vital Signs Temp Pulse Pulse Resp BP Pulse Ox 01/10/19 04:00 62 19 113/68 93 01/10/19 03:00 61 18 103/80 95 01/10/19 02:00 58 L 22 117/74 96 01/10/19 01:00 60 20 134/81 95 01/10/19 00:45 61 15 133/82 97 01/10/19 00:15 64 20 127/84 97 01/10/19 00:00 67 19 135/77 97 01/09/19 23:45 70 21 139/82 97 01/09/19 23:41 36.7 C 59 L 20 96 01/09/19 23:20 62 01/09/19 23:15 72 20 120/75 95 01/09/19 23:00 36.7 C 62 20 112/68 94 01/09/19 21:45 83 13 119/66 94 01/09/19 21:41 76 23 94 01/09/19 21:40 82 25 H 136/75 93 01/09/19 21:36 72 21 96 01/09/19 21:35 92 H 19 126/82 92 01/09/19 21:33 95 01/09/19 21:32 95 01/09/19 21:31 92 H 20 96 01/09/19 21:30 95 H 20 141/96 H 97 01/09/19 21:27 78 28 H 154/107 H 01/09/19 21:25 88 22 01/09/19 21:24 77 26 H 151/105 H 01/09/19 21:20 95 H 14 01/09/19 21:17 82 14 98 01/09/19 21:15 77 17 150/112 H 98 01/09/19 21:06 36.5 C 76 16 164/97 H 98 Laboratory Results Laboratory Results - last 24 hr 01/09/19 01/09/19 01/09/19 21:17 21:17 21:17 WBC 17.59 H RBC 5.65 Hgb 17.4 Hct 49.0 MCV 86.7 MCH 30.8 MCHC 35.5 RDW Std Deviation 39.9 RDW Coeff of Matthieu 12.6 Plt Count 294 MPV 10.3 Immature Gran % (Auto) 0.5 Neut % (Auto) 85.2 Lymph % (Auto) 7.2 [place] % (Auto) 6.9 Eos % (Auto) 0.1 Baso % (Auto) 0.1 Immature Gran # (Auto) 0.08 H Neut # (Auto) 15.01 H Lymph # (Auto) 1.26 [place] # (Auto) 1.21 H Eos # (Auto) 0.02 Baso # (Auto) 0.01 PT 12.1 H INR 1.2 H APTT 23.4 PTT Ratio 0.9 Sodium 136 Potassium 4.0 Chloride 101 Carbon Dioxide 28 Anion Gap 7.0 BUN 25 H Creatinine 1.29 Est Cr Clr Drug Dosing 78.3 Est GFR ( Amer) 80.4 Est GFR (Non-Af Amer) 69.4 BUN/Creatinine Ratio 19.0 Glucose 118 H POC Glucose Estimat Average Glucose Hemoglobin A1c Calcium 9.3 Phosphorus Magnesium 2.1 Total Bilirubin 0.6 AST 35 ALT 72 Alkaline Phosphatase 62 Total Creatine Kinase 111 CK-MB (CK-2) 1.7 CK/CKMB % Calc 1.5 POC Troponin I Troponin I 0.132 H* Total Protein 8.3 H Albumin 4.5 Globulin 3.8 Albumin/Globulin Ratio 1.2 Triglycerides 83 Cholesterol 182 LDL Cholesterol Direct 115 LDL Cholesterol, Calc Not Reportable VLDL Cholesterol, Calc 17 HDL Cholesterol 49 Cholesterol/HDL Ratio 4 Lipase 301 TSH 7.240 H Free T4 1.13 Nasal Screen MRSA (PCR) 01/09/19 01/09/19 01/09/19 21:17 21:21 23:11 WBC RBC Hgb Hct MCV MCH MCHC RDW Std Deviation RDW Coeff of Matthieu Plt Count MPV Immature Gran % (Auto) Neut % (Auto) Lymph % (Auto) [place] % (Auto) Eos % (Auto) Baso % (Auto) Immature Gran # (Auto) Neut # (Auto) Lymph # (Auto) [place] # (Auto) Eos # (Auto) Baso # (Auto) PT INR APTT PTT Ratio Sodium Potassium Chloride Carbon Dioxide Anion Gap BUN Creatinine Est Cr Clr Drug Dosing Est GFR ( Amer) Est GFR (Non-Af Amer) BUN/Creatinine Ratio Glucose POC Glucose Estimat Average Glucose Pending Hemoglobin A1c Pending Calcium Phosphorus Magnesium Total Bilirubin AST ALT Alkaline Phosphatase Total Creatine Kinase CK-MB (CK-2) CK/CKMB % Calc POC Troponin I 0.12 H Troponin I Total Protein Albumin Globulin Albumin/Globulin Ratio Triglycerides Cholesterol LDL Cholesterol Direct LDL Cholesterol, Calc VLDL Cholesterol, Calc HDL Cholesterol Cholesterol/HDL Ratio Lipase TSH Free T4 Nasal Screen MRSA (PCR) Negative 01/09/19 01/10/19 01/10/19 23:30 04:28 04:28 WBC 11.96 H RBC 4.97 Hgb 15.4 Hct 43.1 MCV 86.7 MCH 31.0 MCHC 35.7 RDW Std Deviation 39.8 RDW Coeff of Matthieu 12.6 Plt Count 270 MPV 9.8 Immature Gran % (Auto) 0.3 Neut % (Auto) 69.4 Lymph % (Auto) 19.6 [place] % (Auto) 10.1 Eos % (Auto) 0.5 Baso % (Auto) 0.1 Immature Gran # (Auto) 0.04 H Neut # (Auto) 8.29 H Lymph # (Auto) 2.35 [place] # (Auto) 1.21 H Eos # (Auto) 0.06 Baso # (Auto) 0.01 PT INR APTT PTT Ratio Sodium 138 Potassium 3.7 Chloride 106 Carbon Dioxide 26 Anion Gap 6.0 BUN 19 H Creatinine 0.93 D Est Cr Clr Drug Dosing 108.9 Est GFR ( Amer) 119.4 Est GFR (Non-Af Amer) 103.0 BUN/Creatinine Ratio 20.0 Glucose 90 POC Glucose 109 H Estimat Average Glucose Hemoglobin A1c Calcium 8.8 Phosphorus 3.3 Magnesium 2.2 Total Bilirubin AST ALT Alkaline Phosphatase Total Creatine Kinase CK-MB (CK-2) CK/CKMB % Calc POC Troponin I Troponin I 7.440 H* Total Protein Albumin Globulin Albumin/Globulin Ratio Triglycerides 104 Cholesterol 153 LDL Cholesterol Direct LDL Cholesterol, Calc 90 VLDL Cholesterol, Calc 21 HDL Cholesterol 42 Cholesterol/HDL Ratio 4 Lipase TSH Free T4 Nasal Screen MRSA (PCR) Medications Administered Ciprofloxacin (Cipro) 500 mg PO Q12 [facility] Stop: 01/12/19 01:59 Last Admin: 01/10/19 01:55 Dose: 500 mg Documented by: [id number] Sodium Chloride (Nss 1000ml) 1,000 mls @ 100 mls/hr IV .Q10H [facility] Stop: 02/08/19 21:59 Last Admin: 01/10/19 05:00 Dose: 100 mls/hr Documented by: [id number] Infusion: 01/10/19 05:00 Dose: 100 mls/hr Documented by: [id number] Admin: 01/09/19 23:30 Dose: 100 mls/hr Documented by: [id number] Metronidazole (Flagyl) 500 mg in 100 mls @ 100 mls/hr IV Q8H [facility] Stop: 01/12/19 01:59 Last Infusion: 01/10/19 02:57 Dose: 0 mls/hr Documented by: [id number] Admin: 01/10/19 02:00 Dose: 100 mls/hr Documented by: [id number] Metoprolol Tartrate (Lopressor) 25 mg PO BID [facility] Stop: 02/08/19 22:29 Last Admin: 01/10/19 00:06 Dose: 25 mg Documented by: [id number] PG Care Time/CCT Total # of Minutes Spent Total Time Spent with Patient: Total time spent is greater than 50% in coordination of care (as documented) at patient's floor/unit and/or counseling patient: Resident Activity Tracking Resident Involvement: Resident Care Provided Care Provided: Adult Hospital Medicine (ICU)
[2019-01-10] MEDS ORDERED: POTASSIUM CHLORIDE 20 MEQ TABCR PO STA (05:51)
--- NOTE | 2019-01-10 07:02 | Hospitalist Progress Note ---
Date of Service January 10, 2019 Assessment & Plan (1) STEMI (ST elevation myocardial infarction): Patient presented with chest pain, radiating to jaw, EKG c/w acute inferior lateral AK, troponin 0.132 -> 7.440 Patient is now status post cardiac catheterization, no indication for PCI place ment, suggestive of transient thrombotic occlusion Follow-up echo Continue to monitor on telemetry, downgrade from ICU Cardiology following, patient started on dual antiplatelet therapy, with aspirin and Plavix, beta-christ with metoprolol 25 mg p.o. twice a day, plan for CALEB inhibitor/lisinopril 2.5 mg daily Patient was previously on simvastatin 40 mg daily, recommend to intensify statin therapy, to atorvastatin 80 mg Patient may need hypercoagulable work-up in the future, he will also need to follow-up (from cardiac standpoint ) prior to having his planned cholecystectomy Recent diagnosis of cholecystitis -On antibiotic treatment with ciprofloxacin and Flagyl -Outpatient elective cholecystectomy planned for next month -Ciprofloxacin was held on admission, will resume Flagyl -Currently patient denies any fevers and has only slight tenderness to palpation in his right upper quadrant area,no nausea, vomiting Pre-diabetes -Hyperglycemia noted on presentation -Hemoglobin A1c obtained, 5.9% -will need follow-up with PCP for prediabetes -We will continue to monitor blood glc Full code Subjective Patient downgraded from ICU, now laying in bed in no acute distress. Denies any chest pain, shortness of breath, palpitations, fever, chills, nausea, vomiting. He has mild RUQ tenderness. Family at the bedside, and patient appears very comfortable. Discussed the need for further follow-up (cardiology and gen. surg. for upcoming cholecystectomy). Review of Systems Review of Systems: All systems reviewed & are unremarkable except as noted in HPI & below Constitutional: no fever, no chills and no fatigue Respiratory: no cough and no dyspnea Cardiovascular: no chest pain, no palpitations and no edema Gastrointestinal: + abdominal pain (mild RUQ); no nausea and no vomiting Physical Exam Physical Exam: GENERAL: Young male, in no acute distress, lying in bed, comfortable HEENT: Normocephalic, atraumatic, EOMI,PERRL, anicteric sclera NECK : Supple, no JVD, no lad CHEST : Normal to inspection CV: RRR, no murmur or gallop, no lower extremity edema ABDOMEN: Soft, obese, mild distention,+ bowel sounds, only slightly tender to palpation at the right upper quadrant EXTREMITIES : No LE swelling/tenderness, moves all 4 extremities spontaneously and without difficulty, strength 5 out of 5 in upper and lower limbs NEUROLOGIC : Alert and oriented x3,no facial asymmetry, speech fluent, moves all 4 extremities spontaneously SKIN: dry, warm Results & Data Vital Signs (Past 12 Hours) Vital Signs Temp Pulse Pulse Resp BP Pulse Ox 01/10/19 06:00 70 23 122/82 94 01/10/19 05:00 67 28 H 116/78 95 01/10/19 04:00 62 19 113/68 93 01/10/19 03:00 61 18 103/80 95 01/10/19 02:00 58 L 22 117/74 96 01/10/19 01:00 60 20 134/81 95 01/10/19 00:45 61 15 133/82 97 01/10/19 00:15 64 20 127/84 97 01/10/19 00:00 67 19 135/77 97 01/09/19 23:45 70 21 139/82 97 01/09/19 23:41 36.7 C 59 L 20 96 01/09/19 23:20 62 01/09/19 23:15 72 20 120/75 95 01/09/19 23:00 36.7 C 62 20 112/68 94 01/09/19 21:45 83 13 119/66 94 01/09/19 21:41 76 23 94 01/09/19 21:40 82 25 H 136/75 93 01/09/19 21:36 72 21 96 01/09/19 21:35 92 H 19 126/82 92 01/09/19 21:33 95 01/09/19 21:32 95 01/09/19 21:31 92 H 20 96 01/09/19 21:30 95 H 20 141/96 H 97 01/09/19 21:27 78 28 H 154/107 H 01/09/19 21:25 88 22 01/09/19 21:24 77 26 H 151/105 H 01/09/19 21:20 95 H 14 01/09/19 21:17 82 14 98 01/09/19 21:15 77 17 150/112 H 98 01/09/19 21:06 36.5 C 76 16 164/97 H 98 Laboratory Results 01/10/19 01/10/19 01/09/19 Range/Units 04:28 04:28 23:30 WBC 11.96 H (4.8-10.8) K/uL RBC 4.97 (4.7-6.1) M/uL Hgb 15.4 (14.0-18.0) g/dL Hct 43.1 (42-52) % MCV 86.7 (80-100) fL MCH 31.0 (25-34) pg MCHC 35.7 (32-36) g/dL RDW Std Deviation 39.8 (36.4-46.3) fL RDW Coeff of Matthieu 12.6 (11.5-14.5) % Plt Count 270 (130-400) K/uL MPV 9.8 (7.4-10.4) fL Immature Gran % (Auto) 0.3 % Neut % (Auto) 69.4 % Lymph % (Auto) 19.6 % [place] % (Auto) 10.1 % Eos % (Auto) 0.5 % Baso % (Auto) 0.1 % Immature Gran # (Auto) 0.04 H (0.00-0.02) K/uL Neut # (Auto) 8.29 H (1.4-6.5) K/uL Lymph # (Auto) 2.35 (1.2-3.4) K/uL [place] # (Auto) 1.21 H (0.11-0.59) K/uL Eos # (Auto) 0.06 (0-0.5) K/uL Baso # (Auto) 0.01 (0-0.2) K/uL PT (9.0-12.0) Seconds INR (0.9-1.1) APTT (21.0-31.0) Seconds PTT Ratio Sodium 138 (136-145) mmol/L Potassium 3.7 (3.5-5.1) mmol/L Chloride 106 (98-107) mmol/L Carbon Dioxide 26 (21-32) mmol/L Anion Gap 6.0 (3-11) BUN 19 H (7-18) mg/dl Creatinine 0.93 D (0.6-1.4) mg/dl Est Cr Clr Drug Dosing 108.9 ml/min Est GFR ( Amer) 119.4 Est GFR (Non-Af Amer) 103.0 BUN/Creatinine Ratio 20.0 (10-20) Glucose 90 (70-99) mg/dl POC Glucose 109 H (70-99) Estimat Average Glucose Hemoglobin A1c Calcium 8.8 (8.5-10.1) mg/dl Phosphorus 3.3 (2.5-4.9) mg/dl Magnesium 2.2 (1.8-2.4) mg/dl Total Bilirubin (0.2-1) mg/dl AST (15-37) U/L ALT (12-78) U/L Alkaline Phosphatase (45-117) U/L Total Creatine Kinase (39-308) U/L CK-MB (CK-2) (0.5-3.6) ng/ml CK/CKMB % Calc (0-3.0) POC Troponin I (0-0.045) ng/ml Troponin I 7.440 H* (0-0.045) ng/ml Total Protein (6.4-8.2) gm/dl Albumin (3.4-5.0) gm/dl Globulin (2.5-4.0) gm/dl Albumin/Globulin Ratio (0.9-2) Triglycerides 104 (0-150) mg/dl Cholesterol 153 (0-200) mg/dl LDL Cholesterol Direct mg/dl LDL Cholesterol, Calc 90 VLDL Cholesterol, Calc 21 mg/dl HDL Cholesterol 42 mg/dl Cholesterol/HDL Ratio 4 Lipase (73-393) U/L TSH (0.300-4.500) uIu/ml Free T4 (0.8-1.6) ng/dl Nasal Screen MRSA (PCR) (Negative) 01/09/19 01/09/19 01/09/19 Range/Units 23:11 21:21 21:17 WBC (4.8-10.8) K/uL RBC (4.7-6.1) M/uL Hgb (14.0-18.0) g/dL Hct (42-52) % MCV (80-100) fL MCH (25-34) pg MCHC (32-36) g/dL RDW Std Deviation (36.4-46.3) fL RDW Coeff of Matthieu (11.5-14.5) % Plt Count (130-400) K/uL MPV (7.4-10.4) fL Immature Gran % (Auto) % Neut % (Auto) % Lymph % (Auto) % [place] % (Auto) % Eos % (Auto) % Baso % (Auto) % Immature Gran # (Auto) (0.00-0.02) K/uL Neut # (Auto) (1.4-6.5) K/uL Lymph # (Auto) (1.2-3.4) K/uL [place] # (Auto) (0.11-0.59) K/uL Eos # (Auto) (0-0.5) K/uL Baso # (Auto) (0-0.2) K/uL PT (9.0-12.0) Seconds INR (0.9-1.1) APTT (21.0-31.0) Seconds PTT Ratio Sodium (136-145) mmol/L Potassium (3.5-5.1) mmol/L Chloride (98-107) mmol/L Carbon Dioxide (21-32) mmol/L Anion Gap (3-11) BUN (7-18) mg/dl Creatinine (0.6-1.4) mg/dl Est Cr Clr Drug Dosing ml/min Est GFR ( Amer) Est GFR (Non-Af Amer) BUN/Creatinine Ratio (10-20) Glucose (70-99) mg/dl POC Glucose (70-99) Estimat Average Glucose Pending Hemoglobin A1c Pending Calcium (8.5-10.1) mg/dl Phosphorus (2.5-4.9) mg/dl Magnesium (1.8-2.4) mg/dl Total Bilirubin (0.2-1) mg/dl AST (15-37) U/L ALT (12-78) U/L Alkaline Phosphatase (45-117) U/L Total Creatine Kinase (39-308) U/L CK-MB (CK-2) (0.5-3.6) ng/ml CK/CKMB % Calc (0-3.0) POC Troponin I 0.12 H (0-0.045) ng/ml Troponin I (0-0.045) ng/ml Total Protein (6.4-8.2) gm/dl Albumin (3.4-5.0) gm/dl Globulin (2.5-4.0) gm/dl Albumin/Globulin Ratio (0.9-2) Triglycerides (0-150) mg/dl Cholesterol (0-200) mg/dl LDL Cholesterol Direct mg/dl LDL Cholesterol, Calc VLDL Cholesterol, Calc mg/dl HDL Cholesterol mg/dl Cholesterol/HDL Ratio Lipase (73-393) U/L TSH (0.300-4.500) uIu/ml Free T4 (0.8-1.6) ng/dl Nasal Screen MRSA (PCR) Negative (Negative) 01/09/19 01/09/19 01/09/19 Range/Units 21:17 21:17 21:17 WBC 17.59 H (4.8-10.8) K/uL RBC 5.65 (4.7-6.1) M/uL Hgb 17.4 (14.0-18.0) g/dL Hct 49.0 (42-52) % MCV 86.7 (80-100) fL MCH 30.8 (25-34) pg MCHC 35.5 (32-36) g/dL RDW Std Deviation 39.9 (36.4-46.3) fL RDW Coeff of Matthieu 12.6 (11.5-14.5) % Plt Count 294 (130-400) K/uL MPV 10.3 (7.4-10.4) fL Immature Gran % (Auto) 0.5 % Neut % (Auto) 85.2 % Lymph % (Auto) 7.2 % [place] % (Auto) 6.9 % Eos % (Auto) 0.1 % Baso % (Auto) 0.1 % Immature Gran # (Auto) 0.08 H (0.00-0.02) K/uL Neut # (Auto) 15.01 H (1.4-6.5) K/uL Lymph # (Auto) 1.26 (1.2-3.4) K/uL [place] # (Auto) 1.21 H (0.11-0.59) K/uL Eos # (Auto) 0.02 (0-0.5) K/uL Baso # (Auto) 0.01 (0-0.2) K/uL PT 12.1 H (9.0-12.0) Seconds INR 1.2 H (0.9-1.1) APTT 23.4 (21.0-31.0) Seconds PTT Ratio 0.9 Sodium 136 (136-145) mmol/L Potassium 4.0 (3.5-5.1) mmol/L Chloride 101 (98-107) mmol/L Carbon Dioxide 28 (21-32) mmol/L Anion Gap 7.0 (3-11) BUN 25 H (7-18) mg/dl Creatinine 1.29 (0.6-1.4) mg/dl Est Cr Clr Drug Dosing 78.3 ml/min Est GFR ( Amer) 80.4 Est GFR (Non-Af Amer) 69.4 BUN/Creatinine Ratio 19.0 (10-20) Glucose 118 H (70-99) mg/dl POC Glucose (70-99) Estimat Average Glucose Hemoglobin A1c Calcium 9.3 (8.5-10.1) mg/dl Phosphorus (2.5-4.9) mg/dl Magnesium 2.1 (1.8-2.4) mg/dl Total Bilirubin 0.6 (0.2-1) mg/dl AST 35 (15-37) U/L ALT 72 (12-78) U/L Alkaline Phosphatase 62 (45-117) U/L Total Creatine Kinase 111 (39-308) U/L CK-MB (CK-2) 1.7 (0.5-3.6) ng/ml CK/CKMB % Calc 1.5 (0-3.0) POC Troponin I (0-0.045) ng/ml Troponin I 0.132 H* (0-0.045) ng/ml Total Protein 8.3 H (6.4-8.2) gm/dl Albumin 4.5 (3.4-5.0) gm/dl Globulin 3.8 (2.5-4.0) gm/dl Albumin/Globulin Ratio 1.2 (0.9-2) Triglycerides 83 (0-150) mg/dl Cholesterol 182 (0-200) mg/dl LDL Cholesterol Direct 115 mg/dl LDL Cholesterol, Calc Not Reportable VLDL Cholesterol, Calc 17 mg/dl HDL Cholesterol 49 mg/dl Cholesterol/HDL Ratio 4 Lipase 301 (73-393) U/L TSH 7.240 H (0.300-4.500) uIu/ml Free T4 1.13 (0.8-1.6) ng/dl Nasal Screen MRSA (PCR) (Negative) Medications Administered Current Inpatient Medications Acetaminophen (Tylenol) 650 mg PO Q6H PRN PRN Reason: Fever Stop: 02/08/19 23:16 Aspirin (Ecotrin Ectab) 81 mg PO QAM [facility] Stop: 02/09/19 08:59 Atorvastatin Calcium (Lipitor) 40 mg PO QAM [facility] Stop: 02/09/19 08:59 Atropine Sulfate (Atropine Sulfate) 0.5 mg IV UD PRN PRN Reason: bradycardia/hypotension Stop: 02/08/19 22:24 Ciprofloxacin (Cipro) 500 mg PO Q12 [facility] Stop: 01/12/19 01:59 Last Admin: 01/10/19 01:55 Dose: 500 mg Documented by: Clopidogrel [facility] ([facility]) [facility] [place]: 02/09/19 08:59 Enoxaparin Sodium (Lovenox) 40 [facility] [place]: 02/09/19 08:59 Sodium Chloride (Nss 1000ml) 1,000 mls @ 100 mls/hr IV .Q10H [facility] Stop: 02/08/19 21:59 Last Admin: 01/10/19 05:00 Dose: 100 mls/hr Documented by: Promethazine HCl 12.5 mg/ (Sodium Chloride) 50.5 mls @ 202 mls/hr IV Q6H PRN PRN Reason: Nausea And Vomiting Stop: 02/08/19 23:57 Metronidazole (Flagyl) 500 mg in 100 mls @ 100 mls/hr IV Q8H [facility] Stop: 01/12/19 01:59 Last Infusion: 01/10/19 02:57 Dose: Infused Documented by: Metoprolol Tartrate (Lopressor) 25 mg PO BID [facility] Stop: 02/08/19 22:29 Last Admin: 01/10/19 00:06 Dose: 25 mg Documented by: Miscellaneous ([facility] Protocol For Hyperglycemia) 1 ea N/A PRN PRN; Protocol PRN Reason: Hyperglycemia Protocol Stop: 01/11/19 22:34 Morphine Sulfate (Morphine Sulfate) 4 mg IV Q4H PRN PRN Reason: Pain Stop: 01/23/19 23:57 Nitroglycerin (Nitrostat) 0.4 mg SL PRN PRN PRN Reason: Chest Pain Stop: 02/08/19 22:24 Ondansetron HCl (Zofran) 4 mg IV Q6H PRN PRN Reason: Nausea And Vomiting Stop: 02/08/19 22:24 Tramadol HCl (Ultram) 25 mg PO Q4H PRN PRN Reason: Pain Stop: 02/08/19 23:14
[2019-01-10] MEDS: ASPIRIN 81 MG ECTAB PO SCH (07:45)
[2019-01-10] MEDS: ENOXAPARIN INJ 40 MG/0.4 ML SYR SQ SCH (07:46)
[2019-01-10] MEDS: CLOPIDOGREL BISULFATE 75 MG TAB PO SCH (07:46)
[2019-01-10] MEDS ORDERED: IBUPROFEN 800 MG TAB PO SCH (09:00)
[2019-01-10] MEDS ORDERED: ATORVASTATIN 40 MG TAB PO SCH (09:00)
[2019-01-10] MEDS: COLCHICINE 0.6 MG TAB PO SCH ×2 (09:26→20:10)
[2019-01-10] MEDS: FAMOTIDINE 20 MG TAB PO SCH (09:26)
[2019-01-10 09:43] LABS: C Reactive Protein 0.85 mg/dl (0-0.29); Troponin I 12.7 ng/ml (0-0.045)
[2019-01-10 09:55] LABS: Lyme Ab IgG w/WB Rflx Negative (Negative); Lyme Ab IgM w/WB Rflx Negative (Negative)
[2019-01-10 11:50] LABS: Amphetamines+Metham, Urine Neg (Neg); Barbiturates, Urine Neg (Neg); Benzodiazepine, Urine Pos (Neg); Cocaine, Urine Neg (Neg); MDMA (Ecstacy), Urine Neg (Neg); Methadone, Urine Neg (Neg); Opiate, Urine Neg (Neg); Phencyclidine, Urine Neg (Neg)
--- NOTE | 2019-01-10 13:01 | Cardiology Consultation ---
Date of Consultation January 10, 2019 Assessment & Plan (1) STEMI (ST elevation myocardial infarction): Patient presented to the emergency room less than 4 hours onset of sudden classic symptoms for acute angina myocardial infarction developing severe substernal chest pitting radiating to the jaw with marked fatigue and shortness of breath doing vigorous physical exertion. EKGs reflecting acute inferior lateral myocardial infarct Cardiac catheterization demonstrates approximately 20% lesion with the mid circumflex with area staining consistent with ruptured plaque probable thrombotic issue which lysed during procedure EKGs echocardiogram and LV arteriogram consistent with inferior posterior infarct Plan: Patient initiated on dual antiplatelet therapy with aspirin and clopidogrel Continue beta-christ with metoprolol 25 mg p.o. twice daily Would add low-dose CALEB inhibitor with lisinopril 2.5 mg/day Intensify statin therapy Patient may warrant hypercoagulable work-up in future (2) Hyperlipemia: As above statin will be intensified (3) Cholecystitis: Patient currently asymptomatic and is completing antibiotic therapy. Noted in the setting of acute myocardial infarction even with only minimal residual disease would defer elective surgical intervention at least 1 to 3 months. History of Present Illness Reason for Consultation: Acute inferior posterior myocardial infarction Requesting Physician: Dr. Quezada Attending Physician: Gus Quezada MD History of Present Illness Patient is a 38-year-old male with cardiac risk factors of premature familial coronary disease (father age 45), hyperlipidemia who yesterday during vigorous exertion while hunting and carrying a heavy tree stand back from an afternoon of exertion developed substernal chest pain radiating to the jaw and throat with associated symptoms of marked fatigue. Patient was able to return home but symptoms persisted and he presented to the emergency room for further evaluation. EKGs reflected acute inferior lateral ST elevation. Heart alert was called and patient taken to the cardiac catheterization lab. Symptoms improved dramatically with sublingual nitroglycerin On initial test injections of thrombus was observed in the left circumflex question left main which lysed and resolved prior to formal angiography. Further imaging demonstrated mild narrowing and vascular staining mid circu mflex. LV angiography confirmed wall motion abnormality and for posterior wall otherwise preserved LV function. Troponins and EKGs are consistent with evolving infarct Patient this morning's had no further discomfort he is tolerating current medications well. Notes no chest pains, orthopnea, melena hematochezia dysuria hematuria. Notes no unexplained fevers or infections Was seen for right upper quadrant pain and discomfort approximately 2 weeks ago with cholelithiasis identified. He is completing a course of oral antibiotic therapy with metronidazole and Cipro. No prior history of thrombotic disease. Has been evaluated for past tachypalpitations but no history of TIA or stroke. No history rheumatic fever scarlet fever renal or hepatic disease. Appetite and weight are generally stable. He is vigorously active Allergies Allergy/AdvReac Type Severity Reaction Status Date / Time Penicillins Allergy Severe Hives Verified 01/09/19 21:32 Home Medications Home Medications Medication Instructions Recorded Confirmed Type ciprofloxacin HCl [Cipro] 500 mg PO BID 01/09/19 01/09/19 History ibuprofen 600 mg PO QID PRN 01/09/19 01/09/19 History metronidazole [Flagyl] 500 mg PO TID 01/09/19 01/09/19 History simvastatin 40 mg PO PM 01/09/19 01/09/19 History Patient History Medical History No significant past medical history (Acute) Social History Preferred Language: Thai Communication Ability: Effective Letterer Required: No Beliefs That Will Affect Care: None marital status: Current Living Situation: Spouse Other Information That Helps Us Care for You: No Feels Safe at Home: Yes Safety Concerns: Feels Safe At This Time Smoking Status: Never smoker Do You Dip or Chew Tobacco: No ; Hx Alcohol Use: No Hx Substance Use: No Review of Systems Review of Systems: All systems reviewed & are unremarkable except as noted in HPI & below Physical Exam Constitutional: WD/WN, vitals as above Eyes: PERRL, conjunctivae normal, anicteric sclerae ENMT: external ear and nose normal, oropharynx normal Neck: trachea midline, no thyromegaly Respiratory: normal respiratory effort, lungs clear to auscultation Cardiovascular: Rate/Rhythm: regular rate and regular rhythm Heart Sounds: normal S1 and normal S2; no gallop and no murmur Palpation: normal PMI Vessels: normal carotid upstroke and radial pulses present; no JVD and no car otid bruit Extremities: no edema Gastrointestinal (Abdomen): normal bowel sounds, soft, nontender, no hepatosplenomegaly Musculoskeletal: no cyanosis or clubbing, extremities motor strength 5/5 Skin: no rashes, warm and dry Neurologic: PERRL, EOMI, accommodation nl, no face palsy, no dysarthria Psychiatric: A+Ox3, euthymic affect Results & Data Vital Signs (Past 12 Hours) Vital Signs Pulse Resp BP Pulse Ox 01/10/19 12:30 68 20 01/10/19 12:15 73 16 01/10/19 12:00 73 22 01/10/19 11:45 70 24 01/10/19 11:30 81 18 01/10/19 11:15 62 14 01/10/19 11:00 59 L 16 01/10/19 10:45 59 L 19 01/10/19 10:30 63 17 01/10/19 10:15 62 17 01/10/19 10:00 60 20 01/10/19 09:57 69 22 133/68 01/10/19 09:45 75 24 01/10/19 09:30 72 21 01/10/19 09:15 92 H 16 01/10/19 09:00 81 31 H 01/10/19 08:45 77 24 01/10/19 08:30 74 18 01/10/19 08:15 78 25 H 01/10/19 08:01 81 17 01/10/19 08:00 82 18 139/83 01/10/19 07:46 74 16 97 01/10/19 07:30 74 17 96 01/10/19 07:15 70 17 96 01/10/19 07:01 69 18 95 01/10/19 07:00 63 14 121/76 96 01/10/19 06:45 60 24 95 01/10/19 06:30 86 19 97 01/10/19 06:16 62 17 96 01/10/19 06:00 70 23 122/82 94 01/10/19 05:00 67 28 H 116/78 95 01/10/19 04:00 62 19 113/68 93 01/10/19 03:00 61 18 103/80 95 01/10/19 02:00 58 L 22 117/74 96 01/10/19 01:00 60 20 134/81 95 Laboratory Results Laboratory Results - last 24 hr 01/09/19 01/09/19 01/09/19 21:17 21:17 21:17 WBC 17.59 H RBC 5.65 Hgb 17.4 Hct 49.0 MCV 86.7 MCH 30.8 MCHC 35.5 RDW Std Deviation 39.9 RDW Coeff of Matthieu 12.6 Plt Count 294 MPV 10.3 Immature Gran % (Auto) 0.5 Neut % (Auto) 85.2 Lymph % (Auto) 7.2 [place] % (Auto) 6.9 Eos % (Auto) 0.1 Baso % (Auto) 0.1 Immature Gran # (Auto) 0.08 H Neut # (Auto) 15.01 H Lymph # (Auto) 1.26 [place] # (Auto) 1.21 H Eos # (Auto) 0.02 Baso # (Auto) 0.01 ESR PT 12.1 H INR 1.2 H APTT 23.4 PTT Ratio 0.9 Sodium 136 Potassium 4.0 Chloride 101 Carbon Dioxide 28 Anion Gap 7.0 BUN 25 H Creatinine 1.29 Est Cr Clr Drug Dosing 78.3 Est GFR ( Amer) 80.4 Est GFR (Non-Af Amer) 69.4 BUN/Creatinine Ratio 19.0 Glucose 118 H POC Glucose Estimat Average Glucose Hemoglobin A1c Calcium 9.3 Phosphorus Magnesium 2.1 Total Bilirubin 0.6 AST 35 ALT 72 Alkaline Phosphatase 62 Total Creatine Kinase 111 CK-MB (CK-2) 1.7 CK/CKMB % Calc 1.5 POC Troponin I Troponin I 0.132 H* C-Reactive Protein Total Protein 8.3 H Albumin 4.5 Globulin 3.8 Albumin/Globulin Ratio 1.2 Triglycerides 83 Cholesterol 182 LDL Cholesterol Direct 115 LDL Cholesterol, Calc Not Reportable VLDL Cholesterol, Calc 17 HDL Cholesterol 49 Cholesterol/HDL Ratio 4 Lipase 301 TSH 7.240 H Free T4 1.13 Nasal Screen MRSA (PCR) Urine Opiates Screen Ur Methadone, Qual Urine Barbiturates Ur Phencyclidine (PCP) U Amphetamin/Meth Scrn MDMA (Ecstasy) Screen U OH-Alprazolam Confrm U Benzodiazepines Scrn 7-Amino Clonazepam Ur Nordiazepam Confirm U OH-ethylflurazepam U Lorazepam Cnf GC/MS U Oxazepam Confm GC/MS Ur Temazepam Confirm U OH-Triazolam Confirm U OH-Midazolam Confirm Ur Cocaine Metabolite U Marijuana (THC) Screen Lyme Disease IgG Ab Lyme Disease IgM Ab [place] Type B(1) Ab [place] Type B(2) Ab [place] Type B(3) Ab [place] Type B(4) Ab [place] Type B(5) Ab [place] Type B(6) Ab Hepatitis C Antibody HIV 1&2 Ab/P24 Ag 4thGn 01/09/19 01/09/19 01/09/19 21:17 21:21 23:11 WBC RBC Hgb Hct MCV MCH MCHC RDW Std Deviation RDW Coeff of Matthieu Plt Count MPV Immature Gran % (Auto) Neut % (Auto) Lymph % (Auto) [place] % (Auto) Eos % (Auto) Baso % (Auto) Immature Gran # (Auto) Neut # (Auto) Lymph # (Auto) [place] # (Auto) Eos # (Auto) Baso # (Auto) ESR PT INR APTT PTT Ratio Sodium Potassium Chloride Carbon Dioxide Anion Gap BUN Creatinine Est Cr Clr Drug Dosing Est GFR ( Amer) Est GFR (Non-Af Amer) BUN/Creatinine Ratio Glucose POC Glucose Estimat Average Glucose Pending Hemoglobin A1c Pending Calcium Phosphorus Magnesium Total Bilirubin AST ALT Alkaline Phosphatase Total Creatine Kinase CK-MB (CK-2) CK/CKMB % Calc POC Troponin I 0.12 H Troponin I C-Reactive Protein Total Protein Albumin Globulin Albumin/Globulin Ratio Triglycerides Cholesterol LDL Cholesterol Direct LDL Cholesterol, Calc VLDL Cholesterol, Calc HDL Cholesterol Cholesterol/HDL Ratio Lipase TSH Free T4 Nasal Screen MRSA (PCR) Negative Urine Opiates Screen Ur Methadone, Qual Urine Barbiturates Ur Phencyclidine (PCP) U Amphetamin/Meth Scrn MDMA (Ecstasy) Screen U OH-Alprazolam Confrm U Benzodiazepines Scrn 7-Amino Clonazepam Ur Nordiazepam Confirm U OH-ethylflurazepam U Lorazepam Cnf GC/MS U Oxazepam Confm GC/MS Ur Temazepam Confirm U OH-Triazolam Confirm U OH-Midazolam Confirm Ur Cocaine Metabolite U Marijuana (THC) Screen Lyme Disease IgG Ab Lyme Disease IgM Ab [place] Type B(1) Ab [place] Type B(2) Ab [place] Type B(3) Ab [place] Type B(4) Ab [place] Type B(5) Ab [place] Type B(6) Ab Hepatitis C Antibody HIV 1&2 Ab/P24 Ag 4thGn 01/09/19 01/10/19 01/10/19 23:30 04:28 04:28 WBC 11.96 H RBC 4.97 Hgb 15.4 Hct 43.1 MCV 86.7 MCH 31.0 MCHC 35.7 RDW Std Deviation 39.8 RDW Coeff of Matthieu 12.6 Plt Count 270 MPV 9.8 Immature Gran % (Auto) 0.3 Neut % (Auto) 69.4 Lymph % (Auto) 19.6 [place] % (Auto) 10.1 Eos % (Auto) 0.5 Baso % (Auto) 0.1 Immature Gran # (Auto) 0.04 H Neut # (Auto) 8.29 H Lymph # (Auto) 2.35 [place] # (Auto) 1.21 H Eos # (Auto) 0.06 Baso # (Auto) 0.01 ESR PT INR APTT PTT Ratio Sodium 138 Potassium 3.7 Chloride 106 Carbon Dioxide 26 Anion Gap 6.0 BUN 19 H Creatinine 0.93 D Est Cr Clr Drug Dosing 108.9 Est GFR ( Amer) 119.4 Est GFR (Non-Af Amer) 103.0 BUN/Creatinine Ratio 20.0 Glucose 90 POC Glucose 109 H Estimat Average Glucose Hemoglobin A1c Calcium 8.8 Phosphorus 3.3 Magnesium 2.2 Total Bilirubin AST ALT Alkaline Phosphatase Total Creatine Kinase CK-MB (CK-2) CK/CKMB % Calc POC Troponin I Troponin I 7.440 H* C-Reactive Protein Total Protein Albumin Globulin Albumin/Globulin Ratio Triglycerides 104 Cholesterol 153 LDL Cholesterol Direct LDL Cholesterol, Calc 90 VLDL Cholesterol, Calc 21 HDL Cholesterol 42 Cholesterol/HDL Ratio 4 Lipase TSH Free T4 Nasal Screen MRSA (PCR) Urine Opiates Screen Ur Methadone, Qual Urine Barbiturates Ur Phencyclidine (PCP) U Amphetamin/Meth Scrn MDMA (Ecstasy) Screen U OH-Alprazolam Confrm U Benzodiazepines Scrn 7-Amino Clonazepam Ur Nordiazepam Confirm U OH-ethylflurazepam U Lorazepam Cnf GC/MS U Oxazepam Confm GC/MS Ur Temazepam Confirm U OH-Triazolam Confirm U OH-Midazolam Confirm Ur Cocaine Metabolite U Marijuana (THC) Screen Lyme Disease IgG Ab Lyme Disease IgM Ab [place] Type B(1) Ab [place] Type B(2) Ab [place] Type B(3) Ab [place] Type B(4) Ab [place] Type B(5) Ab [place] Type B(6) Ab Hepatitis C Antibody HIV 1&2 Ab/P24 Ag 4thGn 01/10/19 01/10/19 01/10/19 08:41 08:41 08:41 WBC RBC Hgb Hct MCV MCH MCHC RDW Std Deviation RDW Coeff of Matthieu Plt Count MPV Immature Gran % (Auto) Neut % (Auto) Lymph % (Auto) [place] % (Auto) Eos % (Auto) Baso % (Auto) Immature Gran # (Auto) Neut # (Auto) Lymph # (Auto) [place] # (Auto) Eos # (Auto) Baso # (Auto) ESR 12 PT INR APTT PTT Ratio Sodium Potassium Chloride Carbon Dioxide Anion Gap BUN Creatinine Est Cr Clr Drug Dosing Est GFR ( Amer) Est GFR (Non-Af Amer) BUN/Creatinine Ratio Glucose POC Glucose Estimat Average Glucose Hemoglobin A1c Calcium Phosphorus Magnesium Total Bilirubin AST ALT Alkaline Phosphatase Total Creatine Kinase CK-MB (CK-2) CK/CKMB % Calc POC Troponin I Troponin I 12.700 H* C-Reactive Protein 0.85 H Total Protein Albumin Globulin Albumin/Globulin Ratio Triglycerides Cholesterol LDL Cholesterol Direct LDL Cholesterol, Calc VLDL Cholesterol, Calc HDL Cholesterol Cholesterol/HDL Ratio Lipase TSH Free T4 Nasal Screen MRSA (PCR) Urine Opiates Screen Ur Methadone, Qual Urine Barbiturates Ur Phencyclidine (PCP) U Amphetamin/Meth Scrn MDMA (Ecstasy) Screen U OH-Alprazolam Confrm U Benzodiazepines Scrn 7-Amino Clonazepam Ur Nordiazepam Confirm U OH-ethylflurazepam U Lorazepam Cnf GC/MS U Oxazepam Confm GC/MS Ur Temazepam Confirm U OH-Triazolam Confirm U OH-Midazolam Confirm Ur Cocaine Metabolite U Marijuana (THC) Screen Lyme Disease IgG Ab Negative Lyme Disease IgM Ab Negative [place] Type B(1) Ab [place] Type B(2) Ab [place] Type B(3) Ab [place] Type B(4) Ab [place] Type B(5) Ab [place] Type B(6) Ab Hepatitis C Antibody HIV 1&2 Ab/P24 Ag 4thGn 01/10/19 01/10/19 01/10/19 08:41 08:41 08:41 WBC RBC Hgb Hct MCV MCH MCHC RDW Std Deviation RDW Coeff of Matthieu Plt Count MPV Immature Gran % (Auto) Neut % (Auto) Lymph % (Auto) [place] % (Auto) Eos % (Auto) Baso % (Auto) Immature Gran # (Auto) Neut # (Auto) Lymph # (Auto) [place] # (Auto) Eos # (Auto) Baso # (Auto) ESR PT INR APTT PTT Ratio Sodium Potassium Chloride Carbon Dioxide Anion Gap BUN Creatinine Est Cr Clr Drug Dosing Est GFR ( Amer) Est GFR (Non-Af Amer) BUN/Creatinine Ratio Glucose POC Glucose Estimat Average Glucose Hemoglobin A1c Calcium Phosphorus Magnesium Total Bilirubin AST ALT Alkaline Phosphatase Total Creatine Kinase CK-MB (CK-2) CK/CKMB % Calc POC Troponin I Troponin I C-Reactive Protein Total Protein Albumin Globulin Albumin/Globulin Ratio Triglycerides Cholesterol LDL Cholesterol Direct LDL Cholesterol, Calc VLDL Cholesterol, Calc HDL Cholesterol Cholesterol/HDL Ratio Lipase TSH Free T4 Nasal Screen MRSA (PCR) Urine Opiates Screen Ur Methadone, Qual Urine Barbiturates Ur Phencyclidine (PCP) U Amphetamin/Meth Scrn MDMA (Ecstasy) Screen U OH-Alprazolam Confrm U Benzodiazepines Scrn 7-Amino Clonazepam Ur Nordiazepam Confirm U OH-ethylflurazepam U Lorazepam Cnf GC/MS U Oxazepam Confm GC/MS Ur Temazepam Confirm U OH-Triazolam Confirm U OH-Midazolam Confirm Ur Cocaine Metabolite U Marijuana (THC) Screen Lyme Disease IgG Ab Lyme Disease IgM Ab [place] Type B(1) Ab Pending [place] Type B(2) Ab Pending [place] Type B(3) Ab Pending [place] Type B(4) Ab Pending [place] Type B(5) Ab Pending [place] Type B(6) Ab Pending Hepatitis C Antibody Neg HIV 1&2 Ab/P24 Ag 4thGn Neg 01/10/19 01/10/19 01/10/19 11:05 11:05 11:28 WBC RBC Hgb Hct MCV MCH MCHC RDW Std Deviation RDW Coeff of Matthieu Plt Count MPV Immature Gran % (Auto) Neut % (Auto) Lymph % (Auto) [place] % (Auto) Eos % (Auto) Baso % (Auto) Immature Gran # (Auto) Neut # (Auto) Lymph # (Auto) [place] # (Auto) Eos # (Auto) Baso # (Auto) ESR PT INR APTT PTT Ratio Sodium Potassium Chloride Carbon Dioxide Anion Gap BUN Creatinine Est Cr Clr Drug Dosing Est GFR ( Amer) Est GFR (Non-Af Amer) BUN/Creatinine Ratio Glucose POC Glucose 79 Estimat Average Glucose Hemoglobin A1c Calcium Phosphorus Magnesium Total Bilirubin AST ALT Alkaline Phosphatase Total Creatine Kinase CK-MB (CK-2) CK/CKMB % Calc POC Troponin I Troponin I C-Reactive Protein Total Protein Albumin Globulin Albumin/Globulin Ratio Triglycerides Cholesterol LDL Cholesterol Direct LDL Cholesterol, Calc VLDL Cholesterol, Calc HDL Cholesterol Cholesterol/HDL Ratio Lipase TSH Free T4 Nasal Screen MRSA (PCR) Urine Opiates Screen Neg Ur Methadone, Qual Neg Urine Barbiturates Neg Ur Phencyclidine (PCP) Neg U Amphetamin/Meth Scrn Neg MDMA (Ecstasy) Screen Neg U OH-Alprazolam Confrm Pending U Benzodiazepines Scrn Pos H 7-Amino Clonazepam Pending Ur Nordiazepam Confirm Pending U OH-ethylflurazepam Pending U Lorazepam Cnf GC/MS Pending U Oxazepam Confm GC/MS Pending Ur Temazepam Confirm Pending U OH-Triazolam Confirm Pending U OH-Midazolam Confirm Pending Ur Cocaine Metabolite Neg U Marijuana (THC) Screen Neg Lyme Disease IgG Ab Lyme Disease IgM Ab [place] Type B(1) Ab [place] Type B(2) Ab [place] Type B(3) Ab [place] Type B(4) Ab [place] Type B(5) Ab [place] Type B(6) Ab Hepatitis C Antibody HIV 1&2 Ab/P24 Ag 4thGn Diagnostic Findings 10-JAN-2019 07:26:39 [facility] ROUTINE RETRIEVAL Sinus rhythm with Premature atrial complexes Cannot rule out Inferior infarct , age undetermined Abnormal ECG When compared with ECG of 09-JAN-2019 22:54, (unconfirmed) Premature atrial complexes are now Present
[2019-01-10] MEDS ORDERED: SIMVASTATIN 40 MG TAB PO SCH (21:00)
[2019-01-11] MEDS: metroNIDAZOLE 500 MG/100 ML BAG IV SCH ×3 (03:26→19:35)
[2019-01-11 05:47] LABS: Basophils # (auto) 0.02 K/uL (0-0.2); Basophils % (auto) 0.2 %; Eosinophils # (auto) 0.19 K/uL (0-0.5); Eosinophils % (auto) 2.3 %; Hematocrit (blood only) 44.2 % (42-52); Hemoglobin 15.1 g/dL (14.0-18.0); Immature Granulocytes # (auto) 0.02 K/uL (0.00-0.02); Immature Granulocytes % (auto) 0.2 %; Lymphocytes # (auto) 2.35 K/uL (1.2-3.4); Lymphocytes % (auto) 28.5 %; Mean Corpuscular Hemoglobin 30.1 pg (25-34); Mean Corpuscular Hgb Conc 34.2 g/dL (32-36); Mean Platelet Volume 10.1 fL (7.4-10.4); Monocytes # (auto) 0.99 K/uL (0.11-0.59); Neutrophils # (auto) 4.69 K/uL (1.4-6.5); Neutrophils % (auto) 56.8 %; Platelet Count 251 K/uL (130-400); RDW Coefficient of Variation 12.9 % (11.5-14.5); RDW Standard Deviation 41.2 fL (36.4-46.3); Red Blood Count 5.02 M/uL (4.7-6.1); White Blood Count 8.26 K/uL (4.8-10.8)
[2019-01-11 06:23] LABS: BUN Creatinine Ratio 16.2 (10-20); Calcium 8.6 mg/dl (8.5-10.1); Creatinine Clr Calc Pharmacy 100.3 ml/min; Est GFR (African American) 108.1; Est GFR (Non-African American) 93.3; Magnesium 2.1 mg/dl (1.8-2.4); Potassium 4.1 mmol/L (3.5-5.1)
[2019-01-11 07:32] LABS: Estimated Average Glucose 123 mg/dl; Hemoglobin A1C 5.9 % (4.5-5.6)
[2019-01-11] MEDS: CLOPIDOGREL BISULFATE 75 MG TAB PO SCH (07:58)
[2019-01-11] MEDS: FAMOTIDINE 20 MG TAB PO SCH (07:58)
[2019-01-11] MEDS: METOPROLOL TARTRATE 25 MG TAB PO SCH (07:58)
[2019-01-11] MEDS: ENOXAPARIN INJ 40 MG/0.4 ML SYR SQ SCH (07:59)
[2019-01-11] MEDS: ASPIRIN 81 MG ECTAB PO SCH (07:59)
[2019-01-11] MEDS ORDERED: ATORVASTATIN 40 MG TAB PO SCH (09:00)
[2019-01-11] MEDS: COLCHICINE 0.6 MG TAB PO SCH (09:34)
--- NOTE | 2019-01-11 09:39 | Cardiology Progress Note ---
Date of Service January 11, 2019 Assessment & Plan (1) STEMI (ST elevation myocardial infarction): Patient presented to the emergency room less than 4 hours onset of sudden classic symptoms for acute angina myocardial infarction developing severe substernal chest pitting radiating to the jaw with marked fatigue and shortness of breath doing vigorous physical exertion. EKGs reflecting acute inferior lateral myocardial infarct Cardiac catheterization demonstrates approximately 20% lesion with the mid circumflex with area staining consistent with ruptured plaque probable thrombotic issue which lysed during procedure EKGs echocardiogram and LV arteriogram consistent with inferior posterior infarct Plan: Patient initiated on dual antiplatelet therapy with aspirin and clopidogrel Continue beta-christ with metoprolol 25 mg p.o. 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 Copy of chart, CDs of echo and cardiac cath to accompany patient We will be glad to see patient in [facility] as transfer care once patient sees primary road contractor (2) Hyperlipemia: As above statin will be intensified (3) Cholecystitis: Patient currently asymptomatic and is completing antibiotic therapy. Noted in the setting of acute myocardial infarction even with only minimal re sidual disease would defer elective surgical intervention at least 1 to 3 months. Subjective Patient seen and examined, chart, medications, telemetry reviewed. Patient ambulatory in room and hallway without difficulty denies chest pains, tachypalpitations, syncope or near syncope. Tolerating current medications otherwise feeling well Physical Exam Constitutional: WD/WN, vitals as above Eyes: PERRL, conjunctivae normal, anicteric sclerae ENMT: external ear and nose normal, oropharynx normal Neck: trachea midline, no thyromegaly Respiratory: normal respiratory effort, lungs clear to auscultation Cardiovascular: Rate/Rhythm: regular rate and regular rhythm Heart Sounds: normal S1 and normal S2; no gallop and no murmur Palpation: normal PMI Vessels: normal carotid upstroke and radial pulses present; no JVD and no carotid bruit Extremities: no edema Gastrointestinal (Abdomen): normal bowel sounds, soft, nontender, no hepato splenomegaly Musculoskeletal: no cyanosis or clubbing, extremities motor strength 5/5 Skin: no rashes, warm and dry Neurologic: PERRL, EOMI, accommodation nl, no face palsy, no dysarthria Psychiatric: A+Ox3, euthymic affect Results & Data Vital Signs (Past 12 Hours) Vital Signs Temp Pulse Pulse Resp BP BP Pulse Ox 01/11/19 07:08 36.3 C L 63 15 125/78 96 01/11/19 03:24 36.6 C 73 16 121/75 96 01/11/19 00:00 63 01/10/19 23:05 36.6 C 58 L 20 117/63 96
--- NOTE | 2019-01-11 13:25 | Cardiology Progress Note ---
Date of Service January 11, 2019 Subjective Patient this morning had transient hypotension clamminess and diaphoresis question secondary to medications. Given atypical presentation with thrombus in the absence of significant obstruction questionable haziness on initial coronary angiography of the left main. We will repeat coronary angiography with IVuS of left main this afternoon. Discussed with patient and , agreeable to plan Results & Data Vital Signs (Past 12 Hours) Vital Signs Temp Pulse Resp BP BP Pulse Ox 01/11/19 11:25 36.6 C 67 16 92/52 L 97 01/11/19 07:08 36.3 C L 63 15 125/78 96 01/11/19 03:24 36.6 C 73 16 121/75 96
--- NOTE | 2019-01-11 17:22 | Hospitalist Progress Note ---
Date of Service January 11, 2019 Assessment & Plan (1) Chest pain: (2) STEMI (ST elevation myocardial infarction): Informed by nursing staff, patient bradycardic, clammy hypotensive. Informed by Dr. Devlin, need for another cardiac angiography. Did not see the pt today (pt is supposed to undergo card. angio) After procedure contacted by Dr. Devlin, about results - dissection flap in the left main, and the need for transfer to [place] for cardiovascular surgery. Subjective Informed by nursing staff, patient bradycardic, clammy hypotensive. Informed by Dr. Devlin, need for another cardiac angiography. Did not see the pt today (pt is supposed to undergo card. angio) After procedure contacted by Dr. Devlin, about results - dissection flap in the left main, and the need for transfer to [place] for cardiovascular surgery. Review of Systems Review of Systems: n/a Physical Exam Physical Exam: n/a Results & Data Vital Signs (Past 12 Hours) Vital Signs Temp Pulse Resp BP BP Pulse Ox 01/11/19 16:39 36.8 C 59 L 20 113/64 97 01/11/19 11:25 36.6 C 67 16 92/52 L 97 01/11/19 07:08 36.3 C L 63 15 125/78 96 Laboratory Results 01/11/19 01/11/19 01/10/19 Range/Units 05:31 05:31 21:55 WBC 8.26 (4.8-10.8) K/uL RBC 5.02 (4.7-6.1) M/uL Hgb 15.1 (14.0-18.0) g/dL Hct 44.2 (42-52) % MCV 88.0 (80-100) fL MCH 30.1 (25-34) pg MCHC 34.2 (32-36) g/dL RDW Std Deviation 41.2 (36.4-46.3) fL RDW Coeff of Mattheiu 12.9 (11.5-14.5) % Plt Count 251 (130-400) K/uL MPV 10.1 (7.4-10.4) fL Immature Gran % (Auto) 0.2 % Neut % (Auto) 56.8 % Lymph % (Auto) 28.5 % Kings % (Auto) 12.0 % Eos % (Auto) 2.3 % Baso % (Auto) 0.2 % Immature Gran # (Auto) 0.02 (0.00-0.02) K/uL Neut # (Auto) 4.69 (1.4-6.5) K/uL Lymph # (Auto) 2.35 (1.2-3.4) K/uL Kings # (Auto) 0.99 H (0.11-0.59) K/uL Eos # (Auto) 0.19 (0-0.5) K/uL Baso # (Auto) 0.02 (0-0.2) K/uL Sodium 139 (136-145) mmol/L Potassium 4.1 (3.5-5.1) mmol/L Chloride 107 (98-107) mmol/L Carbon Dioxide 25 (21-32) mmol/L Anion Gap 7.0 (3-11) BUN 16 (7-18) mg/dl Creatinine 1.01 (0.6-1.4) mg/dl Est Cr Clr Drug Dosing 100.3 ml/min Est GFR ( Amer) 108.1 Est GFR (Non-Af Amer) 93.3 BUN/Creatinine Ratio 16.2 (10-20) Glucose 99 (70-99) mg/dl Estimat Average Glucose mg/dl Hemoglobin A1c (4.5-5.6) % Calcium 8.6 (8.5-10.1) mg/dl Magnesium 2.1 (1.8-2.4) mg/dl Troponin I 16.700 H* (0-0.045) ng/ml 01/10/19 01/09/19 Range/Units 16:41 21:17 WBC (4.8-10.8) K/uL RBC (4.7-6.1) M/uL Hgb (14.0-18.0) g/dL Hct (42-52) % MCV (80-100) fL MCH (25-34) pg MCHC (32-36) g/dL RDW Std Deviation (36.4-46.3) fL RDW Coeff of Matthieu (11.5-14.5) % Plt Count (130-400) K/uL MPV (7.4-10.4) fL Immature Gran % (Auto) % Neut % (Auto) % Lymph % (Auto) % Kings % (Auto) % Eos % (Auto) % Baso % (Auto) % Immature Gran # (Auto) (0.00-0.02) K/uL Neut # (Auto) (1.4-6.5) K/uL Lymph # (Auto) (1.2-3.4) K/uL Kings # (Auto) (0.11-0.59) K/uL Eos # (Auto) (0-0.5) K/uL Baso # (Auto) (0-0.2) K/uL Sodium (136-145) mmol/L Potassium (3.5-5.1) mmol/L Chloride (98-107) mmol/L Carbon Dioxide (21-32) mmol/L Anion Gap (3-11) BUN (7-18) mg/dl Creatinine (0.6-1.4) mg/dl Est Cr Clr Drug Dosing ml/min Est GFR ( Amer) Est GFR (Non-Af Amer) BUN/Creatinine Ratio (10-20) Glucose (70-99) mg/dl Estimat Average Glucose 123 mg/dl Hemoglobin A1c 5.9 H (4.5-5.6) % Calcium (8.5-10.1) mg/dl Magnesium (1.8-2.4) mg/dl Troponin I 17.900 H* (0-0.045) ng/ml Medications Administered Current Inpatient Medications Acetaminophen (Tylenol) 650 mg PO Q6H PRN PRN Reason: Fever Stop: 02/08/19 23:16 Aspirin (Ecotrin Ectab) 81 mg PO [facility] Stop: 02/09/19 08:59 Last Admin: 01/11/19 07:59 Dose: 81 mg Documented by: Atorvastatin Calcium (Lipitor) 80 mg PO [facility] Stop: 02/10/19 08:59 Last Admin: 01/11/19 07:58 Dose: 80 mg Documented by: Atropine Sulfate (Atropine Sulfate) 0.5 mg IV UD PRN PRN Reason: bradycardia/hypotension Stop: 02/08/19 22:24 Clopidogrel Bisulfate (Plavix) 75 mg PO [facility] Stop: 02/09/19 08:59 Last Admin: 01/11/19 07:58 Dose: 75 mg Documented by: Colchicine (Colcrys) 0.3 mg PO BID [facility] Stop: 01/11/19 21:01 Last Admin: 01/11/19 09:34 Dose: Not Given Documented by: Enoxaparin Sodium (Lovenox) 40 mg SQ [facility] Stop: 02/09/19 08:59 Last Admin: 01/11/19 07:59 Dose: 40 mg Documented by: Famotidine (Pepcid) 20 mg PO QAM [facility] Stop: 02/09/19 08:59 Last Admin: 01/11/19 07:58 Dose: 20 mg Documented by: Promethazine HCl 12.5 mg/ (Sodium Chloride) 50.5 mls @ 202 mls/hr IV Q6H PRN PRN Reason: Nausea And Vomiting Stop: 02/08/19 23:57 Metronidazole (Flagyl) 500 mg in 100 mls @ 100 mls/hr IV Q8H [facility] Stop: 01/12/19 01:59 Last Infusion: 01/11/19 10:49 Dose: Infused Documented by: Lisinopril (Zestril) 2.5 mg PO [facility] Stop: 02/10/19 08:59 Last Admin: 01/11/19 07:57 Dose: 2.5 mg Documented by: Metoprolol Tartrate (Lopressor) 25 mg PO BID [facility] Stop: 02/08/19 22:29 Last Admin: 01/11/19 07:58 Dose: 25 mg Documented by: Miscellaneous (Icu Protocol For Hyperglycemia) 1 ea N/A PRN PRN; Protocol PRN Reason: Hyperglycemia Protocol Stop: 01/11/19 22:34 Morphine Sulfate (Morphine Sulfate) 4 mg IV Q4H PRN PRN Reason: Pain Stop: 01/23/19 23:57 Nitroglycerin (Nitrostat) 0.4 mg SL PRN PRN PRN Reason: Chest Pain Stop: 02/08/19 22:24 Ondansetron HCl (Zofran) 4 mg IV Q6H PRN PRN Reason: Nausea And Vomiting Stop: 02/08/19 22:24 Tramadol HCl (Ultram) 25 mg PO Q4H PRN PRN Reason: Pain Stop: 02/08/19 23:14
[2019-01-11] MEDS ORDERED: MIDAZOLAM HCL 1 MG/ML 2ML VIAL ONE (17:49)
[2019-01-11] MEDS ORDERED: HEPARIN (PORCINE) 1000 UNIT/ML 10 ML (CATH LAB USE ONLY) ONE (17:49)
[2019-01-11] MEDS ORDERED: NiCARDipine HCL INJ 2.5 MG/ML 10 ML AMP ONE (17:49)
[2019-01-11] MEDS ORDERED: fentaNYL citrate 100 MCG/2 ML VIAL ONE (17:49)
[2019-01-11] MEDS ORDERED: NITROGLYCERIN/D5W 100MCG/ML 20ML SYR ONE (17:50)
--- NOTE | 2019-01-11 18:29 | Post Anesthesia Assessment ---
Date of Service January 11, 2019 Post Sedation Assessment Vital Signs Temp Pulse Pulse Resp BP BP Pulse Ox 01/11/19 16:39 98.2 F 59 L 20 113/64 97 01/11/19 11:25 97.9 F 67 16 92/52 L 97 01/11/19 07:08 97.3 F L 63 15 125/78 96 01/11/19 03:24 97.9 F 73 16 121/75 96 01/11/19 00:00 63 01/10/19 23:05 97.9 F 58 L 20 117/63 96 01/10/19 19:27 98.1 F 58 L 26 H 126/65 95 Recovery Score Activity: Moves 4 extremities Respiration: Deep Breath/Cough Circulation: +/-20% PreAnes Value Consciousness: Fully Awake Oxygen Saturation: O2 needed for >90% Discharge Sedation Level of Care: Fast Track Phase II Post Sedation Plan On clinical assessment, the patient appears to have tolerated the sedation without complications. Patient is recovering as anticipated. Patient will continue to be monitored by nursing and may be discharged when sedation discharge criteria are met per below protocol. Upon Completions of procedure and additional 15 minutes continue every 5 minute vital signs and the P.A.R. score; then discharge to a Phase I or Fast Track to Phase II per the following guidelines: * Discharge Patient to appropriate Phase II area if PAR is 8 or greater or return to pre- procedure baseline. The post - procedure orders will be as directed. * If PAR score is less than 8 or not return to pre-procedure baseline then patient will follow Phase I monitoring till PAR is reached for Phase II. The Phase I may be done in procedure room or may call to secure a Phase I area. * If naloxone or flumazenil are used for reversal, hold in Phase I for continued monitoring from when last reversal dose was given for a minimum of 60 minutes or longer pending the nurse and/or physician discretion of patient condition before discharge to Phase II. Please call the Sedation Physician to re-evaluate and complete post-note for discharge to Phase II area. Do NOT discharge from procedure sedation or Phase 1 until post- sedation evaluation note is complete by procedure /sedation MD Sedation Discharge Instructions to be given to the patient at discharge to home.
--- NOTE | 2019-01-11 18:29 | Pre Anesthesia Assessment ---
Date of Service January 11, 2019 Pre Sedation Assessment Vital Signs Temp Pulse Pulse Resp BP BP Pulse Ox 01/11/19 16:39 98.2 F 59 L 20 113/64 97 01/11/19 11:25 97.9 F 67 16 92/52 L 97 01/11/19 07:08 97.3 F L 63 15 125/78 96 01/11/19 03:24 97.9 F 73 16 121/75 96 01/11/19 00:00 63 01/10/19 23:05 97.9 F 58 L 20 117/63 96 01/10/19 19:27 98.1 F 58 L 26 H 126/65 95 Cardiovascular RRR, no murmur, no edema Respiratory normal respiratory effort, lungs clear to auscultation Pre-Sedation Airway Assessment Smoking Status: Never smoker Hx Sleep Apnea: No Hx Difficult Intubation: No Short, Thick Neck: No Thyromental Distance: > or= 3.5 Finger Breadths Oral Cavity: + WNL Mallampati Class: III ASA: ASA2 NPO Status Date of Last Intake of Fluids: 01/11/19 Time of Last Intake of Fluids: 08:00 Last Oral Intake of Fluids Comment: sip with meds Date of Last Intake of Solid Food: 01/10/19 Time of Last Intake of Solid Foods: 18:30 Procedure Planning Contraindications for Sedation: none Current Medications Reviewed: Yes Notes The planned sedation has been discussed with the patient. Informed Consent was obtained. I have identified the patient, determined the appropriateness of sedation and have assessed the patient immediately prior to the procedure. All medicine(s) and interventions are by my order.
--- NOTE | 2019-01-11 18:33 | Cardiac Catheterization ---
[facility] Data: Videotape Sales Representative Cardiac Status Clinical evaluation leading to the procedure CAD Presenation: STEMI Heart Failure: No Cardiogenic Shock within 24 Hours: No Cardiac Arrest within 24 Hours: No Imaging Studies Past 6 Months: Yes Stress Studies Past 6 Months: No Diagnostic Physicians Name: Gurdeep Alvarez MD Status: Elective Closure Device Percutaneous Entry Location: Radial Closure Device: Radial Band Recommendations: Medical Therapy and/or Counseling Intraprocedure Events Significant Disection: No Perforation: No Cardiac Cath Procedure Full Procedure Date January 11, 2019 Pre-Procedure Diagnosis Pre-Procedure Diagnosis: Non STEMI and CAD AUC Score AUC Score: 7 Post-Procedure Diagnosis Post-Procedure Diagnosis: Cardiothoracic Finding (Left main dissection) Procedure(s) Performed Procedure(s) Performed: Coronary Angiography and IVUS Ring Rolling Machine Operator Gurdeep Alvarez MD Lens Maker(s) Stanley Estimated Blood Loss Estimated Blood Loss: 5 Medication(s) Medication(s): Fentanyl, Heparin, Lidocaine 1%, Nicardipine, Nitroglycerin and Versed Summary of Findings Indication: Reassess possible left main disease Patient underwent emergent cardiac catheterization 2 days ago in the setting of transient inferior ST elevations. At time of catheterization noted to have SHARLENE-3 flow throughout major epicardial vessels. There is concern for transient thrombus involving an OM. Troponin peaked at 17.9. Patient remained chest pain-free. Inferolateral motion abnormality seen on echocardiogram but overall function preserved. Today patient had brief episode of acute fatigue, bradycardia. Upon review of coronary angiograms noted to have some haziness in left main. Brought back to catheterization for planned IVUS of left main. Access: 6 Fr slender right radial artery Catheters: EBU 3.5 guide Findings: LM -mobile, haziness again noted in left main from proximal to distal vessel. SHARLENE-3 flow in LAD and circumflex systems with no apparent thrombus or flow- limiting stenosis. BMW wire placed into distal LAD, IVUS catheter placed into mid LAD. IVUS pullback revealed minimal disease in LAD. Mobile, eccentric stenosis in proximal to the distal left main. In certain frames at its worse up to 70% stenosis. Stenosis seem to vary with heartbeats. Findings thought most likely represent a dissection flap as opposed to adherent thrombus in left main. Catheter/wire removed no apparent coronary complication. SHARLENE-3 flow. Chest pain-free. Arterial Closure: TR band Summary: 1. [id number], suspected left main dissection flap on angiography/IVUS. Recommendations: Recommend further evaluation by tertiary center interventional cardiology/cardiac surgery. For now restart heparin infusion. Hold off on additional clopidogrel until further decisions regarding definitive management. Hemodynamics Rest Ao:: //82 Final Ao: /72/88 LV: -- Recommendations Recommendations: Medical Therapy and/or Counseling Specimens Specimens: None Radiation Exposure (mGy) 546 Contrast (mls) 20 Fluids (cc crystalloids) Fluids (cc crystalloids): 55 Drains Drains: none Anesthesia moderate Procedural Complication(s) None Disposition PCU I attest to the content of the Intraoperative Record and any orders documented therein. Any exceptions are noted below.
[2019-01-11] MEDS ORDERED: Heparin IV Low Dose *NO* Bolus IV ONE (18:54)
[2019-01-11] MEDS ORDERED: Nursing to Pharmacy Communication ONE (19:08)
[2019-01-11] MEDS ORDERED: Heparin IV Low Dose *NO* Bolus IV SCH (19:10)
[2019-01-11] MEDS ORDERED: SODIUM CHLORIDE 0.9% 1000ML 1,000 ML IV SCH (19:15)
[2019-01-11] MEDS ORDERED: HEPARIN SODIUM/DEXTROSE 25,000 UNITS/500 ML BAG IV SCH (19:25)
--- NOTE | 2019-01-11 19:26 | Cardiology Progress Note ---
Date of Service January 11, 2019 Subjective Patient seen and examined. Discussed results of repeat diagnostic cardiac catheterization in detail. Study demonstrated evidence of dissection flap in the left main Currently hemodynamically stable without symptoms Noted clinical history includes recent extended treatment with Cipro, familial history of ischemic heart disease and hyperlipidemia of initial episode of presentation setting of vigorous physical activity Plan: Arrangements made for transfer to [facility] for the availability of cardiovascular surgery. IV heparin initiated with anticipated Integrilin infusion on arrival Transport via [facility] arranged with limited ground transport availability and appropriate cardiac urgency Results & Data Vital Signs (Past 12 Hours) Vital Signs Temp Pulse Pulse Resp BP BP Pulse Ox 01/11/19 19:13 60 134/93 01/11/19 19:09 60 124/80 01/11/19 16:39 36.8 C 59 L 20 113/64 97 01/11/19 11:25 36.6 C 67 16 92/52 L 97
--- NOTE | 2019-01-11 21:12 | Discharge Summary ---
Date of Service January 11, 2019 Admission HPI Per Admitting Provider History obtained from patient, family, and records. Medical history significant for recent bout of cholecystitis status post antibiotic Rx. Recent [facility] visit about 2 weeks ago for gallbladder attack. Patient prescribed antibiotic course. Elective cholecystectomy contemplated next month as per patient. Patient was out both hunting by himself this afternoon when he noted achy chest pain in the middle and left side of his chest accompanied by shortness of breath, diaphoresis, generalized weakness. No prior episodes in the past. No relief with ibuprofen intake. Patient drove himself home thinking symptoms with improved after showering. Patient brought to the ER by . EKG showed ST elevation on the inferior lateral leads. Chest pain improved with nitroglycerin. Heart alert called. Patient underwent emergent diagnostic cardiac catheterization. Patent coronary arteries without obstruction to flow, 10% mid circumflex stenosis. Mid inferior dyskinetic segment suggesting transient thrombotic occlusion consistent with inferior posterolateral injury as per cath note. PCI not indicated. Patient currently at the ICU. Complaining of minimal left-sided chest discomfort. 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 Admission Exam Per Admitting Provider GENERAL: Comfortable, pleasant, no respiratory distress SKIN: Normal color, warm HEENT: Partial alopecia, pink palpebral conjunctivae, no ptosis, dry buccal mucosa NECK : Supple, no tenderness CHEST : CTA, no tenderness HEART : RRR, no obvious murmurs ABDOMEN: Some distention, nontender EXTREMITIES : No LE swelling/tenderness, no other conspicuous deformities noted NEUROLOGIC : Coherent, no facial asymmetry, no other gross focality Principal Diagnosis STEMI, most likely a dissection flap in the left main Discharge Exam Constitutional: WD/WN, vitals as above Eyes: PERRL, conjunctivae normal, anicteric sclerae ENMT: external ear and nose normal, oropharynx normal Neck: trachea midline, no thyromegaly Respiratory: normal respiratory effort, lungs clear to auscultation Cardiovascular: Rate/Rhythm: regular rate and regular rhythm Heart Sounds: normal S1 and normal S2; no gallop and no murmur Palpation: normal PMI Vessels: normal carotid upstroke and radial pulses present; no JVD and no carotid bruit Extremities: no edema Gastrointestinal (Abdomen): normal bowel sounds, soft, nontender, no hepatosplenomegaly Musculoskeletal: no cyanosis or clubbing, extremities motor strength 5/5 Skin: no rashes, warm and dry Neurologic: PERRL, EOMI, accommodation nl, no face palsy, no dysarthria Psychiatric: A+Ox3, euthymic affect Physical exam by prior to cardiac cath today (01/11/2019) Discharge Data Allergies Allergy/AdvReac Type Severity Reaction Status Date / Time Penicillins Allergy Severe Hives Verified 01/09/19 21:32 Consultations 01/09/19 21:49 ED Decision to Admit Stat 01/09/19 22:35 Consult Case Management - Discharge Planning Routine 01/09/19 23:15 Consult Beverage Sales Consultant Routine 01/10/19 09:09 Consult Cardiology Routine 01/11/19 19:26 Burn CD for patient Stat Procedures Performed Operation Date: 01/09/19 22:00 Actual Procedures p Cath, Left with Cors and Vent - Leandro Alvarez MD s Cineradiography w/Routine Exam - Leandro Alvarez MD Operation Date: 01/11/19 15:00 Actual Procedures s Cineradiography w/Routine Exam - Leandro Alvarez MD p IVUS Coronary Single Vessel - Leandro Alvarez MD Ordered Studies 01/09/19 21:31 CL Cath Imgs for PACS use only Stat 01/11/19 13:37 CL Cath Imgs for PACS use only Routine 01/11/19 18:27 CL IVUS Coronary Single Vessel Routine Hospital Course (1) STEMI (ST elevation myocardial infarction): Patient presented with chest pain, radiating to jaw, EKG c/w acute inferior lateral AL, troponin 0.132 -> 7.440 Patient is now status post cardiac catheterization (01/10/2019), no indication for PCI placement, suggestive of transient thrombotic occlusion Cardiology following, yesterday patient started on dual antiplatelet therapy, with aspirin and Plavix, beta-christ with metoprolol 25 mg p.o. twice a day, CALEB inhibitor/lisinopril 2.5 mg daily Patient was previously on simvastatin 40 mg daily, recommend to intensify statin therapy, to atorvastatin 80 mg He was downgraded to telemetry from ICU yesterday, felt very well, did not have any more chest pain, shortness of breath, palpitations, dizziness or lightheadedness. However today pt presented with hypotension, clamminess, diaphoresis and cardiology was concerned about his left main, as there was some haziness noted on angiography yesterday. Decided to repeat coronary angiography today, results highly concerning for Dissection flap in the left main, therefore decided to transfer patient to [facility] in [place] for cardiovascular surgery procedure. Recent diagnosis of cholecystitis -On antibiotic treatment with ciprofloxacin and Flagyl as outpt -Outpatient elective cholecystectomy planned for next month -Ciprofloxacin was held on admission, resumed Flagyl -no fevers and only slight tenderness to palpation in his right upper quadrant area Pre-diabetes -Hyperglycemia noted on presentation -Hemoglobin A1c obtained, 5.9% -will need follow-up with PCP for prediabetes -We will continue to monitor blood glc Full code Total Time Total Time Spent Total Time Spent (In Minutes): 40 Total Time Includes: Examination of the Patient, Discharge Planning, Medication Reconciliation and Communication With Other Providers Discharge Plan Discharge Items Patient Disposition: Transfer Acute Care Hospital Reason For Visit: ACS Discharge Diagnosis: STEMI, most likely a dissection flap in the left main Activity: As commented below Activity Comment: bedrest, transfer to [facility], [facility] for cardiovascular surgery Non-emergency contact: Primary Care Provider and Bowl Turner Call non-emergency contact if: you have any medication questions and your symptoms worsen Follow-up/Referrals: PCP,NO [Primary Care Provider] - Diet: Heart Healthy Addtl Attending Provider Instructions: Patient status post cardiac cath yesterday, however presented with bradycardia, hypotension, clamminess today, and due to concern for his left main by cardiology, another coronary angiography was performed today, January 11, 2019, there is a high concern for a dissection flap in the left main, and therefore patient will be transferred to [facility], [facility] for cardiovascular surgery. Pending Studies at Discharge: No Stand-Alone Forms: Call Back Authorization, [facility] Skilled Items Patient informed of condition?: Yes DNR: No Discharge Level of Care: Other Communicable Disease: No Discharge Prognosis: Other Lines: Peripheral IV Urinary Catheter: No Medications and DC Order Prescriptions: Discontinued metronidazole [Flagyl] 500 mg Tablet 500 mg PO TID RF: 0 ciprofloxacin HCl [Cipro] 500 mg Tablet 500 mg PO BID RF: 0 simvastatin 40 mg Tablet 40 mg PO PM RF: 0 ibuprofen 200 mg Tablet 600 mg PO QID PRN (Reason: Pain) RF: 0 Discharge Orders: Discharge Order (Routine); Ordered 01/11/19 Ordered By: Gus Quezada Admission Data Admit Date/Time: 01/09/19 23:11 Attending Provider: Gus Quezada Admit Provider: Ed Bolton Primary Care Provider: PCP,NO Other Providers: Ed Bolton ; Nelson Bernabe ; Donell Devlin Other Interventions: Discharge Summary Assessment (RN) Last Done: 01/11/19 20:08 DC Date/Time DO NOT enter until pt leaves facility: 01/11/19 20:42
[2019-01-12] MEDS ORDERED: COLCHICINE 0.6 MG TAB PO SCH (09:00)
[2019-01-13 12:35] LABS: 7-Aminoclonaz, Confirm NEGATIVE NG/ML (CUTOFF=25); Hydro-Alp Ur, GC/MS NEGATIVE NG/ML (CUTOFF=25); Hydroxyethylflurazepam, Conf NEGATIVE NG/ML (CUTOFF=50); Hydroxytriazolam NEGATIVE NG/ML (CUTOFF=50); Lorazepam, Ur GC/MS NEGATIVE NG/ML (CUTOFF=50); Nordiazepam, Confirm NEGATIVE NG/ML (CUTOFF=50); Oxazepam Ur, GC/MS NEGATIVE NG/ML (CUTOFF=50); Temazepam, Confirm NEGATIVE NG/ML (CUTOFF=50)
[2019-01-13 16:50] LABS: Coxsackie B1 1:16 (<1:8); Coxsackie B3 <1:8 (<1:8)
== END 2019-01-11 20:42 | disposition short-term general hospital (02) | DRG 282 ==
LOC: ED 21:03 → CC 21:47 → 1E 21:47 → 2E 01-10 13:12